=== PATIENT | male | born 1955 | race Caucasian/White ===

== ENCOUNTER 2016-06-17 11:11 | Inpatient (IN) | payer BC, OTHER ==
[2016-06-17] VITALS (11 sets, daily range): BP systolic 103–128; BP diastolic 60–68; PULSE 60–81; RESP 18–22; TEMP 96–99; O2SAT 98–100
[~2016-06-17] VITALS: Ht 182.9 cm; Wt 92.1 kg
[2016-06-17] MEDS ORDERED: ceFAZolin 2 GM PREMIX 50 ML ONE (11:22)
[2016-06-17] MEDS ORDERED: DIPHTH/TETANUS/ACEL PERTUSSIS (BOOSTER) 0.5 ML VIAL/PFS IM ONE (11:22)
[2016-06-17 11:36] LABS: I-STAT POTASSIUM 5.5 MMOL/L (3.5-4.9)
[2016-06-17 11:37] LABS: AUTOMATED NEUTROPHIL # 5.1 TH/MM3 (1.8-7.7); BASOPHIL # 0.1 TH/MM3 (0-0.2); BASOPHIL % 0.9 % (0.0-2.0); EOSINOPHIL # 0.2 TH/MM3 (0-0.4); HEMATOCRIT 50.8 % (39.0-51.0); HEMO FLAGS DIFF FINAL; LYMPH % 36.4 % (9.0-44.0); LYMPHOCYTE # 3.6 TH/MM3 (1.0-4.8); MEAN CELL VOLUME 92.3 FL (80.0-100.0); MEAN CORPUSCULAR HEMOGLOBIN 30.9 PG (27.0-34.0); MEAN CORPUSCULAR HGB CONC 33.4 % (32.0-36.0); MONO % 8.4 % (0.0-8.0); NEUT % 52.3 % (16.0-70.0); PLATELET COUNT 241 TH/MM3 (150-450); RED BLOOD COUNT 5.51 MIL/MM3 (4.50-5.90); RED CELL DISTRIBUTION WIDTH 13.8 % (11.6-17.2); WHITE BLOOD COUNT 9.8 TH/MM3 (4.0-11.0)
[2016-06-17] MEDS ORDERED: IOHEXOL 350 MG/ML 10 ML VIAL (for RAD DIAG) IV ONE (11:43)
[2016-06-17 11:45] LABS: APTT (PATIENT) 25.5 SEC (24.3-30.1); PROTHROMBIN TIME - PATIENT 10.6 SEC (9.8-11.6)
[2016-06-17] MEDS ORDERED: TETANUS/DIPHTHERIA TOXOID ADULT 0.5 ML VIAL IM ONE (11:45)
[2016-06-17] MEDS ORDERED: ROCURONIUM INJ 100 MG/10 ML VIAL IV ONE (11:45)
[2016-06-17] MEDS ORDERED: ceFAZolin 2 GM PREMIX 50 ML IV ONE (11:45)
[2016-06-17] MEDS ORDERED: ETOMIDATE 20 MG/10 ML VIAL IV PUSH ONE (11:45)
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
[2016-06-17] MEDS ORDERED: POTASSIUM CHLOR 20 MEQ PREMIX 100 ML IV PRN ×3 (12:00→13:00)
[2016-06-17] MEDS ORDERED: CHLORHEXIDINE GLUCONATE 2 % 1 PACK (2 CLOTHS) TOP PRN (12:00)
[2016-06-17] MEDS ORDERED: MAGNESIUM OXIDE 400 MG TAB PO PRN (12:00)
[2016-06-17] MEDS ORDERED: POTASSIUM PHOSPHATE MONOBASIC 500 MG TAB PO/TUBE PRN (12:00)
[2016-06-17] MEDS ORDERED: MAGNESIUM SULFATE INJ 4 GM in SODIUM CHLORIDE 0.9% INJ 92 ML IV PRN (12:00)
[2016-06-17] MEDS ORDERED: POTASSIUM PHOSPHATE MONOBASIC 500 MG TAB PO PRN (12:00)
[2016-06-17] MEDS ORDERED: POTASSIUM PHOSPHATE INJ 30 MMOL in SODIUM CHLOR 0.9% 250 ML INJ 250 ML IV PRN (12:00)
[2016-06-17] MEDS ORDERED: MAGNESIUM SULFATE INJ 2 GM in SODIUM CHLORIDE 0.9% INJ 96 ML IV PRN (12:00)
[2016-06-17] MEDS ORDERED: MISCELLANEOUS NURSING INFORMATION XX SCH (12:00)
[2016-06-17] MEDS ORDERED: POTASSIUM CHLOR 40 MEQ PREMIX 100 ML IV PRN ×2 (12:00)
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
[2016-06-17] MEDS ORDERED: SODIUM CHLOR 0.9% 1000 ML INJ 1,000 ML IV ONE (12:15)
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
[2016-06-17] MEDS: SODIUM CHLOR 0.9% 1000 ML INJ 1,000 ML IV SCH (12:30)
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
[2016-06-17] MEDS ORDERED: CALCIUM GLUCONATE INJ 1 GM in SODIUM CHLORIDE 0.9% INJ 100 ML IV PRN (13:00)
[2016-06-17] MEDS ORDERED: SODIUM CHLORIDE 0.9% FLUSH 5 ML FLUSH IVF PRN (13:00)
[2016-06-17] MEDS ORDERED: MAGNESIUM SULFATE INJ 2 GM in SODIUM CHLORIDE 0.9% INJ 100 ML IV PRN (13:00)
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
[2016-06-17] MEDS: PROPOFOL 1000 MG/100 ML INJ 100 ML IV SCH (14:39)
[2016-06-17] MEDS: PANTOPRAZOLE SODIUM 40 MG VIAL IV SCH (14:39)
[2016-06-17] MEDS ORDERED: PANTOPRAZOLE SODIUM 40 MG VIAL IV PUSH SCH (15:00)
--- NOTE | 2016-06-17 15:03 | RADRPT ---
EXAM DATE/TIME: 06/17/2016 14:39 [facility] COMPARISON: CHEST SINGLE AP, June 17, 2016, 11:06. INDICATIONS : Central line placement. MEDICAL HISTORY : None. SURGICAL HISTORY : None. ENCOUNTER: Subsequent ACUITY: 1 day PAIN SCORE: Non-responsive. LOCATION: Bilateral chest FINDINGS: The ET tube, NG tube, and left subclavian line appear well placed. The heart size is normal. There is increased density medial left base. A pneumothorax is not seen. CONCLUSION: The tubes and lines are in good position. There is consolidation or atelectasis at the medial left juan ng base. Fernando Almodovar MD on June 17, 2016 at 15:01 Board Certified Radiologist. This report was verified electronically.
--- NOTE | 2016-06-17 15:04 | PD.PROCEDR ---
Procedure Note Procedure DX: Traumatic Brain Injury OP: 1. Insertion arterial line (92908) 2. Insertion Central Venous Line ([id number]) Procedure: Franck test normal left hand. Left wrist supinated, prepped and draped. Left radial artery cannulated with 20 gauge needle and wire advanced. Canula passed over wire to 3 cm. Good waveform observed. Dressing applied. Left chest prepped and draped. Left subclavian vein cannulated and wire easily advanced. Catheter passed over wire to 17 cm. Lumens aspirated and flushed. Dressing applied. CXR ordered, will review. Mervin Robb MD Jun 17, 2016 15:04
[2016-06-17 15:38] LABS: BLOOD GAS BASE EXCESS -2.7 mmol/L (-2-2); BLOOD GAS CARBOXYHEMOGLOBIN 0.7 % (0-4); BLOOD GAS HCO3 22 mmol/L (22-26); BLOOD GAS O2 HGB SATURATION 98 % (90-100); BLOOD GAS OXYGEN CONTENT 22.3 Vol % (12.0-20.0); BLOOD GAS PCO2 37 mmHg (38-42); BLOOD GAS PO2 347 mmHg (61-120); BLOOD GAS TOTAL HGB 15.6 G/DL (12.0-16.0); CRITICAL VALUE NO; DRAW SITE ART LINE; FIO2 100 %; OXYGEN DEVICE VENTILATOR; STAT YES; TEMP CORR TO 98.6; ULNAR PULSE PRESENT; VENT SETTINGS PRVC/AC
[2016-06-17] MEDS: levETIRAcetam INJ 500 MG in SODIUM CHLORIDE 0.9% INJ 100 ML IV SCH (16:01)
[2016-06-17] MEDS: RESP: ALBUTEROL 2.5 MG/IPRATROPIUM 0.5 MG NEB (SCH) NEB ×2 (16:59→19:39)
[2016-06-17] MEDS ORDERED: GENTAMICIN SULFATE 80 MG/2 ML VIAL ONE (18:36)
[2016-06-17] MEDS ORDERED: VANCOMYCIN HCL 1000 MG VIAL ONE (18:37)
[2016-06-17 19:54] LABS: BLOOD GAS BASE EXCESS -0.9 mmol/L (-2-2); BLOOD GAS CARBOXYHEMOGLOBIN 0.9 % (0-4); BLOOD GAS HCO3 23 mmol/L (22-26); BLOOD GAS O2 HGB SATURATION 97 % (90-100); BLOOD GAS OXYGEN CONTENT 21.4 Vol % (12.0-20.0); BLOOD GAS PCO2 34 mmHg (38-42); BLOOD GAS PO2 159 mmHg (61-120); BLOOD GAS TOTAL HGB 15.5 G/DL (12.0-16.0); CRITICAL VALUE NO; OXYGEN DEVICE VENTILATOR; TEMP CORR TO 98.6
[2016-06-17 19:55] LABS: DRAW SITE ART LINE; FIO2 50 %; STAT NO; ULNAR PULSE PRESENT; VENT SETTINGS PRVC/AC
[2016-06-17] MEDS: DOCUSATE SODIUM 100 MG CAP PO SCH (20:17)
[2016-06-17] MEDS: MAGNESIUM HYDROXIDE SUSP 30 ML CUP PO SCH (20:17)
[2016-06-17] MEDS: CHLORHEXIDINE 0.12% (ORAL KIT) 15 ML CUP MT SCH (20:17)
[2016-06-17] MEDS: SODIUM CHLORIDE 0.9% FLUSH 5 ML FLUSH IV FLUSH SCH (20:18)
[2016-06-17] MEDS: BACITRACIN TOP OINT 15 GM TUBE TOP SCH (21:00)
[2016-06-17] MEDS ORDERED: SODIUM CHLORIDE 0.9% FLUSH 5 ML FLUSH IVF SCH (21:00)
[2016-06-18] VITALS (20 sets, daily range): BP systolic 107–144; BP diastolic 58–90; PULSE 74–95; RESP 18–20; TEMP 97.5–99.3; O2SAT 98–100
[2016-06-18] MEDS: SODIUM CHLOR 0.9% 1000 ML INJ 1,000 ML IV SCH ×3 (01:19→20:34)
[2016-06-18] MEDS: PROPOFOL 1000 MG/100 ML INJ 100 ML IV SCH ×5 (01:19→17:34)
[2016-06-18] MEDS: levETIRAcetam INJ 500 MG in SODIUM CHLORIDE 0.9% INJ 100 ML IV SCH ×2 (01:19→13:26)
[2016-06-18] MEDS ORDERED: LACTCAP8 PO (02:12)
[2016-06-18] MEDS ORDERED: AMLO1TAB35 PO (02:12)
[2016-06-18] MEDS ORDERED: [UNRECOGNIZED DRUG - OTHER] EACH NARE (02:12)
[2016-06-18] MEDS ORDERED: PREV30CA11 PO (02:12)
[2016-06-18] MEDS ORDERED: LEVO.05 PO (02:12)
[2016-06-18] MEDS ORDERED: MULT1TAB84 PO (02:12)
[2016-06-18] MEDS ORDERED: MOBI15TA PO (02:12)
[2016-06-18] MEDS ORDERED: EPINEPHrine HCL (1:10,000) 1 MG/10 ML SYRINGE ONE (02:47)
[2016-06-18] MEDS ORDERED: LIDOCAINE HCL 2% 100 MG/5 ML SYRINGE ONE (02:48)
[2016-06-18] MEDS ORDERED: ATROPINE SULFATE 1 MG/10 ML SYRINGE ONE (02:49)
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
[2016-06-18 04:10] LABS: BLOOD GAS BASE EXCESS -1.6 mmol/L (-2-2); BLOOD GAS CARBOXYHEMOGLOBIN 1.1 % (0-4); BLOOD GAS HCO3 22 mmol/L (22-26); BLOOD GAS METHEMOGLOBIN 1.1 % (0-2); BLOOD GAS O2 HGB SATURATION 95 % (90-100); BLOOD GAS OXYGEN CONTENT 20.8 Vol % (12.0-20.0); BLOOD GAS PCO2 32 mmHg (38-42); BLOOD GAS PO2 87 mmHg (61-120); BLOOD GAS TOTAL HGB 15.5 G/DL (12.0-16.0); TEMP CORR TO 98.6
[2016-06-18 04:11] LABS: CRITICAL VALUE NO; OXYGEN DEVICE VENTILATOR
[2016-06-18 04:12] LABS: DRAW SITE A; FIO2 40 %; STAT NO; VENT SETTINGS SEE COMMENTS
[2016-06-18] MEDS: RESP: ALBUTEROL 2.5 MG/IPRATROPIUM 0.5 MG NEB (SCH) NEB ×4 (04:24→20:57)
[2016-06-18] MEDS: CHLORHEXIDINE 0.12% (ORAL KIT) 15 ML CUP MT SCH ×2 (04:59→20:36)
[2016-06-18] MEDS: CHLORHEXIDINE GLUCONATE 2 % 1 PACK (2 CLOTHS) TOP SCH (04:59)
[2016-06-18 05:09] LABS: BASOPHIL % 0.4 % (0.0-2.0); EOSINOPHIL % 0.2 % (0.0-4.0); HEMATOCRIT 46.4 % (39.0-51.0); HEMO FLAGS DIFF FINAL; LYMPH % 7.8 % (9.0-44.0); LYMPHOCYTE # 0.9 TH/MM3 (1.0-4.8); MEAN CELL VOLUME 91.5 FL (80.0-100.0); MEAN CORPUSCULAR HEMOGLOBIN 30.3 PG (27.0-34.0); MEAN CORPUSCULAR HGB CONC 33.1 % (32.0-36.0); MONO % 7.9 % (0.0-8.0); NEUT % 83.7 % (16.0-70.0); PLATELET COUNT 197 TH/MM3 (150-450); RED BLOOD COUNT 5.06 MIL/MM3 (4.50-5.90); RED CELL DISTRIBUTION WIDTH 14.5 % (11.6-17.2); WHITE BLOOD COUNT 11.9 TH/MM3 (4.0-11.0)
[2016-06-18 05:11] LABS: PROTHROMBIN TIME - PATIENT 10.7 SEC (9.8-11.6)
[2016-06-18 05:28] LABS: BICARBONATE 28.5 MEQ/L (21.0-32.0); MAGNESIUM 2.3 MG/DL (1.5-2.5); POTASSIUM 4.4 MEQ/L (3.5-5.1)
--- NOTE | 2016-06-18 06:32 | RADRPT ---
EXAM DATE/TIME: 06/18/2016 03:19 [facility] COMPARISON: CHEST SINGLE AP, June 17, 2016, 14:39. INDICATIONS : Shortness of breath. MEDICAL HISTORY : None. SURGICAL HISTORY : None. ENCOUNTER: Subsequent ACUITY: 2 days PAIN SCORE: Non-responsive. LOCATION: Bilateral chest FINDINGS: A single view of the chest demonstrates endotracheal tube tip in satisfactory position. Left central line in superior vena cava. NG enters stomach. Subsegmental airspace disease at the lung bases. CONCLUSION: 1. Stable subsegmental airspace disease at the lung bases. Support apparatus in satisfactory position . Luis Enrique Rock MD on June 18, 2016 at 6:29 Board Certified Radiologist. This report was verified electronically.
[2016-06-18] MEDS ORDERED: testosterone (07:29)
[2016-06-18] MEDS ORDERED: CIAL2.5T PO (07:29)
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
[2016-06-18] MEDS ORDERED: 3% SALINE INJ 500 ML IV ONE (08:00)
[2016-06-18] MEDS: LACTULOSE SYRUP 20 GM/30 ML CUP PO SCH (08:37)
[2016-06-18] MEDS: SODIUM CHLORIDE 0.9% FLUSH 5 ML FLUSH IV FLUSH SCH ×2 (08:38→20:35)
[2016-06-18] MEDS: DOCUSATE SODIUM 100 MG CAP PO SCH ×2 (08:38→21:00)
[2016-06-18] MEDS: PANTOPRAZOLE SODIUM 40 MG VIAL IV SCH (08:38)
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
[2016-06-18 12:11] LABS: BLOOD GAS HCO3 23 mmol/L (22-26); BLOOD GAS O2 HGB SATURATION 96 % (90-100); BLOOD GAS OXYGEN CONTENT 20.8 Vol % (12.0-20.0); BLOOD GAS PCO2 37 mmHg (38-42); BLOOD GAS PO2 99 mmHg (61-120); BLOOD GAS TOTAL HGB 15.4 G/DL (12.0-16.0); CRITICAL VALUE NO; FIO2 40 %; OXYGEN DEVICE VENTILATOR; TEMP CORR TO 98.6; VENT SETTINGS PRVC/AC
[2016-06-18 12:12] LABS: DRAW SITE ART LINE; NUMBER OF ARTERIAL PUNCTURES 0; STAT NO; ULNAR PULSE PRESENT
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
[2016-06-18 20:26] LABS: BLOOD GAS BASE EXCESS 0.3 mmol/L (-2-2); BLOOD GAS CARBOXYHEMOGLOBIN 0.8 % (0-4); BLOOD GAS HCO3 24 mmol/L (22-26); BLOOD GAS O2 HGB SATURATION 97 % (90-100); BLOOD GAS OXYGEN CONTENT 20.2 Vol % (12.0-20.0); BLOOD GAS PCO2 37 mmHg (38-42); BLOOD GAS PO2 115 mmHg (61-120); BLOOD GAS TOTAL HGB 14.8 G/DL (12.0-16.0); CRITICAL VALUE NO; OXYGEN DEVICE VENTILATOR; TEMP CORR TO 98.6
[2016-06-18 20:27] LABS: DRAW SITE ART LINE; FIO2 40 %; STAT NO; VENT SETTINGS SEE COMMENTS
[2016-06-18] MEDS: MAGNESIUM HYDROXIDE SUSP 30 ML CUP PO SCH (20:36)
[2016-06-19] VITALS (19 sets, daily range): BP systolic 138–162; BP diastolic 60–74; PULSE 77–98; RESP 20–22; TEMP 97.5–99; O2SAT 96–99
[2016-06-19] MEDS: PROPOFOL 1000 MG/100 ML INJ 100 ML IV SCH ×4 (01:02→20:38)
[2016-06-19] MEDS: levETIRAcetam INJ 500 MG in SODIUM CHLORIDE 0.9% INJ 100 ML IV SCH ×2 (01:02→14:11)
[2016-06-19] MEDS: RESP: ALBUTEROL 2.5 MG/IPRATROPIUM 0.5 MG NEB (SCH) NEB ×4 (03:29→22:17)
[2016-06-19] MEDS: CHLORHEXIDINE GLUCONATE 2 % 1 PACK (2 CLOTHS) TOP SCH (04:00)
[2016-06-19 04:34] LABS: AUTOMATED NEUTROPHIL # 8.9 TH/MM3 (1.8-7.7); BASOPHIL # 0.1 TH/MM3 (0-0.2); BASOPHIL % 0.6 % (0.0-2.0); EOSINOPHIL % 0.4 % (0.0-4.0); HEMO FLAGS DIFF FINAL; LYMPH % 9.8 % (9.0-44.0); LYMPHOCYTE # 1.1 TH/MM3 (1.0-4.8); MEAN CELL VOLUME 92.5 FL (80.0-100.0); MEAN CORPUSCULAR HEMOGLOBIN 31.2 PG (27.0-34.0); MEAN CORPUSCULAR HGB CONC 33.7 % (32.0-36.0); MONO % 8.6 % (0.0-8.0); NEUT % 80.6 % (16.0-70.0); PLATELET COUNT 225 TH/MM3 (150-450); RED BLOOD COUNT 4.43 MIL/MM3 (4.50-5.90); RED CELL DISTRIBUTION WIDTH 14.7 % (11.6-17.2)
[2016-06-19 04:59] LABS: BLOOD GAS BASE EXCESS -0.2 mmol/L (-2-2); BLOOD GAS HCO3 23 mmol/L (22-26); BLOOD GAS METHEMOGLOBIN 0.9 % (0-2); BLOOD GAS O2 HGB SATURATION 96 % (90-100); BLOOD GAS OXYGEN CONTENT 18.6 Vol % (12.0-20.0); BLOOD GAS PCO2 34 mmHg (38-42); BLOOD GAS PO2 99 mmHg (61-120); BLOOD GAS TOTAL HGB 13.7 G/DL (12.0-16.0); CRITICAL VALUE NO; FIO2 45 %; OXYGEN DEVICE VENTILATOR; TEMP CORR TO 98.6; VENT SETTINGS PRVC/22/550/1.0/+5
[2016-06-19 05:00] LABS: DRAW SITE ALINE; STAT NO; ULNAR PULSE PRESENT
[2016-06-19 05:34] LABS: ALKALINE PHOSPHATASE 41 U/L (45-117); ALT (GPT) 25 U/L (12-78); ANION GAP 7 MEQ/L (5-15); AST (GOT) 26 U/L (15-37); BICARBONATE 25.3 MEQ/L (21.0-32.0); BLOOD UREA NITROGEN 13 MG/DL (7-18); CHLORIDE 120 MEQ/L (98-107); GLOMERULAR FILTRATION RATE 62 ML/MIN (>89); POTASSIUM 4.3 MEQ/L (3.5-5.1); SODIUM (NA) 152 MEQ/L (136-145); TOTAL BILIRUBIN ADULT 0.9 MG/DL (0.2-1.0)
--- NOTE | 2016-06-19 07:09 | RADRPT ---
EXAM DATE/TIME: 06/19/2016 03:27 [facility] COMPARISON: CHEST SINGLE AP, June 18, 2016, 3:19. INDICATIONS : Shortness of breath. MEDICAL HISTORY : None. SURGICAL HISTORY : None. ENCOUNTER: Subsequent ACUITY: 3 days PAIN SCORE: Non-responsive. LOCATION: Bilateral chest FINDINGS: Compare June 18. Endotracheal tube and nasogastric tube unchanged. Minimal basilar and perihilar air space disease is stable. No effusion or pneumothorax. CONCLUSION: Mild basilar and perihilar airspace disease is stable. Support apparatus unchanged. Left central line in superior vena cava. Luis Enrique Rock MD on June 19, 2016 at 7:05 Board Certified Radiologist. This report was verified electronically.
[2016-06-19] MEDS: LACTULOSE SYRUP 20 GM/30 ML CUP PO SCH (08:35)
[2016-06-19] MEDS: DOCUSATE SODIUM 100 MG CAP PO SCH ×2 (08:35→20:39)
[2016-06-19] MEDS: PANTOPRAZOLE SODIUM 40 MG VIAL IV SCH (08:35)
[2016-06-19] MEDS: SODIUM CHLORIDE 0.9% FLUSH 5 ML FLUSH IV FLUSH SCH ×2 (08:36→20:39)
[2016-06-19] MEDS: CHLORHEXIDINE 0.12% (ORAL KIT) 15 ML CUP MT SCH ×2 (08:36→20:33)
[2016-06-19] MEDS: BACITRACIN TOP OINT 15 GM TUBE TOP SCH ×3 (08:37→21:00)
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
[2016-06-19] MEDS ORDERED: NON-FORMULARY DRUG (Amlodipine-Atorvastatin 1 TAB) PO SCH (09:45)
[2016-06-19] MEDS: LEVOTHYROXINE SODIUM 50 MCG TAB PO SCH (11:11)
[2016-06-19] MEDS: SODIUM CHLOR 0.9% 1000 ML INJ 1,000 ML IV SCH ×2 (11:12→21:30)
[2016-06-19] MEDS: ATORVASTATIN 10 MG TAB PO SCH (11:12)
[2016-06-19] MEDS: amLODIPine BESYLATE 5 MG TAB PO SCH (11:12)
[2016-06-19] MEDS ORDERED: 3% SALINE INJ 500 ML IV ONE (12:30)
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
[2016-06-19] MEDS: METOPROLOL TARTRATE 25 MG TAB PO SCH ×2 (13:20→20:39)
[2016-06-19] MEDS: MAGNESIUM HYDROXIDE SUSP 30 ML CUP PO SCH (20:39)
[2016-06-19] MEDS: SODIUM CHLORIDE 0.9% FLUSH 5 ML FLUSH IV FLUSH PRN (23:35)
[2016-06-19] MEDS: LABETALOL HCL 100 MG/20 ML VIAL IV PUSH PRN (23:35)
[2016-06-20] VITALS (15 sets, daily range): BP systolic 114–175; BP diastolic 52–71; PULSE 70–114; RESP 18–22; TEMP 98.2–99.9; O2SAT 93–100
[2016-06-20] MEDS: PROPOFOL 1000 MG/100 ML INJ 100 ML IV SCH ×2 (01:13→06:08)
[2016-06-20] MEDS: levETIRAcetam INJ 500 MG in SODIUM CHLORIDE 0.9% INJ 100 ML IV SCH ×2 (01:14→15:47)
[2016-06-20] MEDS: RESP: ALBUTEROL 2.5 MG/IPRATROPIUM 0.5 MG NEB (SCH) NEB ×4 (03:15→21:07)
[2016-06-20] MEDS: LABETALOL HCL 100 MG/20 ML VIAL IV PUSH PRN ×3 (03:15→09:06)
[2016-06-20] MEDS: SODIUM CHLORIDE 0.9% FLUSH 5 ML FLUSH IV FLUSH PRN ×2 (03:29→06:52)
[2016-06-20] MEDS: CHLORHEXIDINE GLUCONATE 2 % 1 PACK (2 CLOTHS) TOP SCH (04:00)
[2016-06-20 04:27] LABS: AUTOMATED NEUTROPHIL # 7.9 TH/MM3 (1.8-7.7); BASOPHIL # 0.1 TH/MM3 (0-0.2); BASOPHIL % 0.8 % (0.0-2.0); EOSINOPHIL # 0.2 TH/MM3 (0-0.4); EOSINOPHIL % 1.9 % (0.0-4.0); HEMATOCRIT 36.4 % (39.0-51.0); HEMO FLAGS DIFF FINAL; LYMPH % 10.1 % (9.0-44.0); MEAN CELL VOLUME 92.1 FL (80.0-100.0); MEAN CORPUSCULAR HEMOGLOBIN 31.4 PG (27.0-34.0); MEAN CORPUSCULAR HGB CONC 34.1 % (32.0-36.0); MONO % 8.3 % (0.0-8.0); NEUT % 78.9 % (16.0-70.0); PLATELET COUNT 180 TH/MM3 (150-450); RED BLOOD COUNT 3.95 MIL/MM3 (4.50-5.90); RED CELL DISTRIBUTION WIDTH 14.6 % (11.6-17.2)
[2016-06-20 05:19] LABS: ALT (GPT) 32 U/L (12-78); ANION GAP 7 MEQ/L (5-15); AST (GOT) 32 U/L (15-37); BLOOD UREA NITROGEN 12 MG/DL (7-18); CHLORIDE 122 MEQ/L (98-107); GLOMERULAR FILTRATION RATE 75 ML/MIN (>89); MAGNESIUM 2.7 MG/DL (1.5-2.5); SODIUM (NA) 154 MEQ/L (136-145)
[2016-06-20 05:22] LABS: ALKALINE PHOSPHATASE 48 U/L (45-117); TOTAL BILIRUBIN ADULT 0.8 MG/DL (0.2-1.0)
[2016-06-20] MEDS: LEVOTHYROXINE SODIUM 50 MCG TAB PO SCH (06:08)
--- NOTE | 2016-06-20 06:09 | RADRPT ---
EXAM DATE/TIME: 06/20/2016 04:04 [facility] COMPARISON: CHEST SINGLE AP, June 19, 2016, 3:27. INDICATIONS : Shortness of breath. MEDICAL HISTORY : None. SURGICAL HISTORY : None. ENCOUNTER: Subsequent ACUITY: 4 - 6 days PAIN SCORE: Non-responsive. LOCATION: Bilateral chest FINDINGS: A single view of the chest demonstrates endotracheal tube and gastric position. NG enters stomach. A central line in superior vena cava. Mild basilar airspace disease. No effusion or pneumothorax. CONCLUSION: 1. Support apparatus unchanged. Mild basilar airspace disease similar to June 19. Luis Enrique Rock MD on June 20, 2016 at 6:06 Board Certified Radiologist. This report was verified electronically.
[2016-06-20] MEDS: SODIUM PHOSPHATE INJ 30 MMOL in SODIUM CHLOR 0.9% 250 ML INJ 240 ML IV PRN (07:46)
[2016-06-20] MEDS: CHLORHEXIDINE 0.12% (ORAL KIT) 15 ML CUP MT SCH (08:25)
[2016-06-20] MEDS: LACTULOSE SYRUP 20 GM/30 ML CUP PO SCH (08:25)
[2016-06-20] MEDS: PANTOPRAZOLE SODIUM 40 MG VIAL IV SCH (08:25)
[2016-06-20] MEDS: DOCUSATE SODIUM 100 MG CAP PO SCH ×2 (08:26→21:00)
[2016-06-20] MEDS: METOPROLOL TARTRATE 25 MG TAB PO SCH (08:26)
[2016-06-20] MEDS: amLODIPine BESYLATE 5 MG TAB PO SCH (08:26)
[2016-06-20] MEDS: ATORVASTATIN 10 MG TAB PO SCH (08:26)
[2016-06-20] MEDS: SODIUM CHLORIDE 0.9% FLUSH 5 ML FLUSH IV FLUSH SCH ×2 (08:26→21:28)
[2016-06-20] MEDS: BACITRACIN TOP OINT 15 GM TUBE TOP SCH ×2 (08:27→21:00)
[2016-06-20] MEDS: SODIUM CHLOR 0.9% 1000 ML INJ 1,000 ML IV SCH ×2 (08:28→21:07)
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
[2016-06-20] MEDS ORDERED: METOPROLOL TARTRATE 5 MG/5 ML VIAL ONE (17:29)
[2016-06-20] MEDS ORDERED: METOPROLOL TARTRATE 5 MG/5 ML VIAL IV PUSH ONE (18:00)
[2016-06-20] MEDS: ARTIFICIAL TEARS OPTH OINT 3.5 APPLIC/3.5 GM TUBO LEFT EYE SCH (21:00)
[2016-06-20] MEDS: MAGNESIUM HYDROXIDE SUSP 30 ML CUP PO SCH (21:00)
[2016-06-20] MEDS: ACETAMINOPHEN 1000 MG/100 ML VIAL IV PRN (22:55)
[2016-06-21] VITALS (20 sets, daily range): BP systolic 124–161; BP diastolic 58–71; PULSE 78–93; RESP 20–24; TEMP 99.2–102.6; O2SAT 94–100
[2016-06-21] MEDS: METOPROLOL TARTRATE 5 MG/5 ML VIAL IV SCH ×4 (00:23→17:59)
[2016-06-21] MEDS ORDERED: SUCCINYLCHOLINE CHLORIDE 200 MG/10 ML VIAL ONE (00:42)
[2016-06-21] MEDS ORDERED: ETOMIDATE 20 MG/10 ML VIAL ONE (00:42)
[2016-06-21] MEDS ORDERED: SUCCINYLCHOLINE CHLORIDE 200 MG/10 ML VIAL IV PUSH ONE (00:45)
[2016-06-21] MEDS ORDERED: ETOMIDATE 20 MG/10 ML VIAL IV PUSH ONE (00:45)
[2016-06-21] MEDS ORDERED: PROPOFOL 1000 MG/100 ML INJ 100 ML ONE (00:56)
[2016-06-21] MEDS: PROPOFOL 1000 MG/100 ML INJ 100 ML IV SCH ×4 (01:14→16:16)
--- NOTE | 2016-06-21 01:31 | RADRPT ---
EXAM DATE/TIME: 06/21/2016 01:11 [facility] COMPARISON: CHEST SINGLE AP, June 20, 2016, 4:04. INDICATIONS : Post intubation. MEDICAL HISTORY : None. SURGICAL HISTORY : None. ENCOUNTER: Subsequent ACUITY: 4 - 6 days PAIN SCORE: Non-responsive. LOCATION: Bilateral chest FINDINGS: Endotracheal tube is present and the tip extends to the inferior margin of the clavicles. Left subcla vian line tip overlies the SVC. There is consolidation of the left lower lobe suspected. Right lung i s clear. Osseous structures are intact. Enteric tube courses beneath the diaphragm. CONCLUSION: Lines and tubes as above. Left lower lobe consolidation. Prosper Pritchett MD on June 21, 2016 at 1:29 Board Certified Radiologist. This report was verified electronically.
[2016-06-21] MEDS: levETIRAcetam INJ 500 MG in SODIUM CHLORIDE 0.9% INJ 100 ML IV SCH ×2 (01:46→13:23)
[2016-06-21] MEDS: RESP: ALBUTEROL 2.5 MG/IPRATROPIUM 0.5 MG NEB (SCH) NEB ×3 (03:42→15:03)
[2016-06-21] MEDS: CHLORHEXIDINE GLUCONATE 2 % 1 PACK (2 CLOTHS) TOP SCH (04:00)
[2016-06-21 04:18] LABS: BLOOD GAS BASE EXCESS -1.1 mmol/L (-2-2); BLOOD GAS HCO3 23 mmol/L (22-26); BLOOD GAS METHEMOGLOBIN 1.1 % (0-2); BLOOD GAS O2 HGB SATURATION 98 % (90-100); BLOOD GAS OXYGEN CONTENT 17.3 Vol % (12.0-20.0); BLOOD GAS PCO2 34 mmHg (38-42); BLOOD GAS PO2 221 mmHg (61-120); BLOOD GAS TOTAL HGB 12.3 G/DL (12.0-16.0); CRITICAL VALUE NO; OXYGEN DEVICE VENTILATOR; TEMP CORR TO 98.6
[2016-06-21 04:19] LABS: VENT SETTINGS SEE COMMENTS
[2016-06-21 04:20] LABS: DRAW SITE LT RADIAL; FIO2 100 %; NUMBER OF ARTERIAL PUNCTURES 1; STAT NO; ULNAR PULSE PRESENT
[2016-06-21 06:12] LABS: AUTOMATED NEUTROPHIL # 7.8 TH/MM3 (1.8-7.7); BASOPHIL # 0.1 TH/MM3 (0-0.2); BASOPHIL % 0.7 % (0.0-2.0); EOSINOPHIL # 0.4 TH/MM3 (0-0.4); EOSINOPHIL % 3.4 % (0.0-4.0); HEMATOCRIT 34.7 % (39.0-51.0); HEMO FLAGS DIFF FINAL; LYMPHOCYTE # 1.1 TH/MM3 (1.0-4.8); MEAN CORPUSCULAR HEMOGLOBIN 31.7 PG (27.0-34.0); MEAN CORPUSCULAR HGB CONC 34.5 % (32.0-36.0); NEUT % 76.9 % (16.0-70.0); PLATELET COUNT 185 TH/MM3 (150-450); RED BLOOD COUNT 3.77 MIL/MM3 (4.50-5.90); RED CELL DISTRIBUTION WIDTH 14.8 % (11.6-17.2); WHITE BLOOD COUNT 10.2 TH/MM3 (4.0-11.0)
[2016-06-21 06:35] LABS: ALT (GPT) 46 U/L (12-78); ANION GAP 8 MEQ/L (5-15); AST (GOT) 46 U/L (15-37); BICARBONATE 25.2 MEQ/L (21.0-32.0); BLOOD UREA NITROGEN 15 MG/DL (7-18); CHLORIDE 118 MEQ/L (98-107); GLOMERULAR FILTRATION RATE 76 ML/MIN (>89); MAGNESIUM 2.5 MG/DL (1.5-2.5); POTASSIUM 3.8 MEQ/L (3.5-5.1); SODIUM (NA) 151 MEQ/L (136-145)
[2016-06-21 06:37] LABS: ALKALINE PHOSPHATASE 47 U/L (45-117); TOTAL BILIRUBIN ADULT 1.6 MG/DL (0.2-1.0)
[2016-06-21] MEDS: LEVOTHYROXINE SODIUM 50 MCG TAB PO SCH (07:40)
[2016-06-21] MEDS ORDERED: BISACODYL 10 MG SUPP RECTAL ONE (08:00)
[2016-06-21] MEDS: CHLORHEXIDINE 0.12% (ORAL KIT) 15 ML CUP MT SCH ×2 (08:00→21:00)
[2016-06-21] MEDS: DOCUSATE SODIUM 100 MG CAP PO SCH ×2 (08:28→20:42)
[2016-06-21] MEDS: ATORVASTATIN 10 MG TAB PO SCH (08:28)
[2016-06-21] MEDS: SODIUM CHLORIDE 0.9% FLUSH 5 ML FLUSH IV FLUSH SCH ×2 (08:28→21:00)
[2016-06-21] MEDS: LACTULOSE SYRUP 20 GM/30 ML CUP PO SCH (08:28)
[2016-06-21] MEDS: PANTOPRAZOLE SODIUM 40 MG VIAL IV SCH (08:28)
[2016-06-21] MEDS: BACITRACIN TOP OINT 15 GM TUBE TOP SCH ×2 (08:29→21:00)
[2016-06-21] MEDS: ARTIFICIAL TEARS OPTH OINT 3.5 APPLIC/3.5 GM TUBO LEFT EYE SCH ×2 (08:29→21:01)
[2016-06-21] MEDS: SODIUM CHLOR 0.9% 1000 ML INJ 1,000 ML IV SCH ×2 (08:33→23:30)
[2016-06-21] MEDS: amLODIPine BESYLATE 5 MG TAB PO SCH (08:34)
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
[2016-06-21] MEDS: LABETALOL HCL 100 MG/20 ML VIAL IV PUSH PRN (19:47)
[2016-06-21] MEDS: ACETAMINOPHEN 1000 MG/100 ML VIAL IV PRN (19:47)
[2016-06-21] MEDS: RESP: ALBUTEROL 2.5 MG/IPRATROPIUM 0.5 MG NEB (PRN) NEB (19:49)
[2016-06-21] MEDS ORDERED: VANCOMYCIN INJ 1,000 MG in SODIUM CHLOR 0.9% 250 ML INJ 250 ML IV ONE (20:30)
[2016-06-21] MEDS ORDERED: Vancomycin Consult Pharmacy 1 EA OTHER SCH (20:30)
[2016-06-21] MEDS: MAGNESIUM HYDROXIDE SUSP 30 ML CUP PO SCH (20:42)
[2016-06-21] MEDS: PIPERACIL-TAZO 4.5 GM PREMIX 100 ML IV SCH (21:33)
[2016-06-21] MEDS ORDERED: VANCOMYCIN INJ 2,000 MG in SODIUM CHLORID 0.9% 500 ML INJ 500 ML IV ONE (23:00)
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
[2016-06-22] VITALS (18 sets, daily range): BP systolic 121–172; BP diastolic 61–85; PULSE 63–108; RESP 20–22; TEMP 99.7–101.5; O2SAT 96–100
[2016-06-22] MEDS: PROPOFOL 1000 MG/100 ML INJ 100 ML IV SCH ×2 (01:31→10:30)
[2016-06-22] MEDS: METOPROLOL TARTRATE 5 MG/5 ML VIAL IV SCH ×2 (01:31→05:17)
[2016-06-22] MEDS: levETIRAcetam INJ 500 MG in SODIUM CHLORIDE 0.9% INJ 100 ML IV SCH ×2 (01:32→13:31)
[2016-06-22] MEDS: CHLORHEXIDINE GLUCONATE 2 % 1 PACK (2 CLOTHS) TOP SCH (04:00)
[2016-06-22] MEDS: PIPERACIL-TAZO 4.5 GM PREMIX 100 ML IV SCH ×4 (05:17→20:44)
[2016-06-22] MEDS: LEVOTHYROXINE SODIUM 50 MCG TAB PO SCH (05:17)
[2016-06-22 05:49] LABS: AUTOMATED NEUTROPHIL # 14.7 TH/MM3 (1.8-7.7); BASOPHIL # 0.1 TH/MM3 (0-0.2); BASOPHIL % 0.5 % (0.0-2.0); EOSINOPHIL # 0.1 TH/MM3 (0-0.4); EOSINOPHIL % 0.3 % (0.0-4.0); HEMATOCRIT 37.2 % (39.0-51.0); HEMO FLAGS DIFF FINAL; LYMPH % 4.9 % (9.0-44.0); LYMPHOCYTE # 0.8 TH/MM3 (1.0-4.8); MEAN CORPUSCULAR HEMOGLOBIN 30.9 PG (27.0-34.0); MEAN CORPUSCULAR HGB CONC 33.2 % (32.0-36.0); MONO % 6.9 % (0.0-8.0); NEUT % 87.4 % (16.0-70.0); PLATELET COUNT 179 TH/MM3 (150-450); RED CELL DISTRIBUTION WIDTH 14.1 % (11.6-17.2); WHITE BLOOD COUNT 16.9 TH/MM3 (4.0-11.0)
[2016-06-22 05:53] LABS: BLOOD GAS BASE EXCESS -0.9 mmol/L (-2-2); BLOOD GAS CARBOXYHEMOGLOBIN 1.3 % (0-4); BLOOD GAS HCO3 23 mmol/L (22-26); BLOOD GAS METHEMOGLOBIN 0.9 % (0-2); BLOOD GAS O2 HGB SATURATION 96 % (90-100); BLOOD GAS OXYGEN CONTENT 16.8 Vol % (12.0-20.0); BLOOD GAS PCO2 35 mmHg (38-42); BLOOD GAS PO2 97 mmHg (61-120); BLOOD GAS TOTAL HGB 12.4 G/DL (12.0-16.0); CRITICAL VALUE NO; OXYGEN DEVICE VENTILATOR; TEMP CORR TO 98.6
[2016-06-22 05:54] LABS: DRAW SITE LT RADIAL; FIO2 45 %; NUMBER OF ARTERIAL PUNCTURES 1; STAT NO; ULNAR PULSE PRESENT; VENT SETTINGS SEE COMMEMNT
--- NOTE | 2016-06-22 05:54 | RADRPT ---
EXAM DATE/TIME: 06/22/2016 03:31 [facility] COMPARISON: CHEST SINGLE AP, June 21, 2016, 1:11. INDICATIONS : Short of breath. MEDICAL HISTORY : None. SURGICAL HISTORY : None. ENCOUNTER: Subsequent ACUITY: 4 - 6 days PAIN SCORE: Non-responsive. LOCATION: Bilateral chest FINDINGS: Endotracheal tube and enteric tube again seen. Left subclavian line again noted. There is no consolid ation or effusion right lung is clear. Small left effusion and left basilar airspace disease suspecte d. This is stable. CONCLUSION: No significant change has occurred. Prosper Pritchett MD on June 22, 2016 at 5:52 Board Certified Radiologist. This report was verified electronically.
[2016-06-22 06:16] LABS: ALKALINE PHOSPHATASE 80 U/L (45-117); ALT (GPT) 110 U/L (12-78); ANION GAP 7 MEQ/L (5-15); AST (GOT) 98 U/L (15-37); BICARBONATE 25.4 MEQ/L (21.0-32.0); BLOOD UREA NITROGEN 18 MG/DL (7-18); CHLORIDE 114 MEQ/L (98-107); GLOMERULAR FILTRATION RATE 68 ML/MIN (>89); MAGNESIUM 2.8 MG/DL (1.5-2.5); POTASSIUM 4.2 MEQ/L (3.5-5.1); SODIUM (NA) 146 MEQ/L (136-145); TOTAL BILIRUBIN ADULT 3.2 MG/DL (0.2-1.0)
[2016-06-22] MEDS: CHLORHEXIDINE 0.12% (ORAL KIT) 15 ML CUP MT SCH ×2 (08:05→20:27)
[2016-06-22] MEDS: PANTOPRAZOLE SODIUM 40 MG VIAL IV SCH (08:59)
[2016-06-22] MEDS: amLODIPine BESYLATE 5 MG TAB PO SCH (09:00)
[2016-06-22] MEDS: ATORVASTATIN 10 MG TAB PO SCH (09:00)
[2016-06-22] MEDS: LACTULOSE SYRUP 20 GM/30 ML CUP PO SCH (09:00)
[2016-06-22] MEDS: DOCUSATE SODIUM 100 MG CAP PO SCH ×2 (09:00→20:36)
[2016-06-22] MEDS: ARTIFICIAL TEARS OPTH OINT 3.5 APPLIC/3.5 GM TUBO LEFT EYE SCH ×2 (09:01→20:36)
[2016-06-22] MEDS: SODIUM CHLORIDE 0.9% FLUSH 5 ML FLUSH IV FLUSH SCH ×2 (09:01→20:35)
[2016-06-22] MEDS: BACITRACIN TOP OINT 15 GM TUBE TOP SCH ×2 (09:01→20:37)
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
[2016-06-22] MEDS ORDERED: METOPROLOL TARTRATE 5 MG/5 ML VIAL IV PRN (10:00)
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
[2016-06-22] MEDS: PROPRANOLOL HCL 20 MG TAB PO SCH ×3 (10:31→22:00)
[2016-06-22] MEDS: oxyCODONE HCL ORAL CONC 20 MG/ML SYRINGE PO SCH ×4 (10:32→20:48)
[2016-06-22] MEDS: VANCOMYCIN INJ 1,500 MG in SODIUM CHLORID 0.9% 500 ML INJ 500 ML IV SCH (11:39)
[2016-06-22] MEDS: SODIUM CHLOR 0.9% 1000 ML INJ 1,000 ML IV SCH (12:00)
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
[2016-06-22] MEDS: MAGNESIUM HYDROXIDE SUSP 30 ML CUP PO SCH (20:36)
[2016-06-22] MEDS: ACETAMINOPHEN 1000 MG/100 ML VIAL IV PRN (21:36)
[2016-06-23] VITALS (19 sets, daily range): BP systolic 123–158; BP diastolic 62–77; PULSE 57–69; RESP 20; TEMP 99.1–100.6; O2SAT 97–100
[2016-06-23] MEDS: VANCOMYCIN INJ 1,500 MG in SODIUM CHLORID 0.9% 500 ML INJ 500 ML IV SCH ×2 (00:40→13:03)
[2016-06-23] MEDS: SODIUM CHLOR 0.9% 1000 ML INJ 1,000 ML IV SCH ×2 (00:41→14:35)
[2016-06-23] MEDS: levETIRAcetam INJ 500 MG in SODIUM CHLORIDE 0.9% INJ 100 ML IV SCH ×2 (02:00→14:37)
[2016-06-23] MEDS: oxyCODONE HCL ORAL CONC 20 MG/ML SYRINGE PO SCH ×6 (02:02→21:35)
[2016-06-23] MEDS: CHLORHEXIDINE GLUCONATE 2 % 1 PACK (2 CLOTHS) TOP SCH ×2 (04:00→23:48)
[2016-06-23] MEDS: PIPERACIL-TAZO 4.5 GM PREMIX 100 ML IV SCH ×4 (04:43→21:40)
[2016-06-23] MEDS: LEVOTHYROXINE SODIUM 50 MCG TAB PO SCH (04:44)
--- NOTE | 2016-06-23 04:44 | RADRPT ---
EXAM DATE/TIME: 06/23/2016 02:58 [facility] COMPARISON: CHEST SINGLE AP, June 22, 2016, 3:31. INDICATIONS : Shortness of breath. MEDICAL HISTORY : Non-responsive SURGICAL HISTORY : Non-responsive ENCOUNTER: Subsequent ACUITY: 1 week PAIN SCORE: Non-responsive. LOCATION: Bilateral chest FINDINGS: Bilateral effusions and lower lobe consolidation noted. Endotracheal tube in satisfactory position th e left subclavian line tip overlies the SVC. Enteric tube courses beneath the diaphragm, distal to pr oximal stomach. CONCLUSION: Basilar consolidation and effusions. Prosper Pritchett MD on June 23, 2016 at 4:42 Board Certified Radiologist. This report was verified electronically.
[2016-06-23 05:12] LABS: AUTOMATED NEUTROPHIL # 8.3 TH/MM3 (1.8-7.7); BASOPHIL # 0.1 TH/MM3 (0-0.2); BASOPHIL % 0.5 % (0.0-2.0); EOSINOPHIL # 0.3 TH/MM3 (0-0.4); EOSINOPHIL % 2.5 % (0.0-4.0); HEMATOCRIT 34.3 % (39.0-51.0); HEMO FLAGS DIFF FINAL; LYMPHOCYTE # 0.7 TH/MM3 (1.0-4.8); MEAN CELL VOLUME 92.8 FL (80.0-100.0); MEAN CORPUSCULAR HEMOGLOBIN 30.9 PG (27.0-34.0); MEAN CORPUSCULAR HGB CONC 33.3 % (32.0-36.0); MONO % 9.5 % (0.0-8.0); NEUT % 80.5 % (16.0-70.0); PLATELET COUNT 168 TH/MM3 (150-450); RED CELL DISTRIBUTION WIDTH 14.1 % (11.6-17.2); WHITE BLOOD COUNT 10.3 TH/MM3 (4.0-11.0)
[2016-06-23 05:34] LABS: ALT (GPT) 121 U/L (12-78); ANION GAP 6 MEQ/L (5-15); AST (GOT) 102 U/L (15-37); BLOOD UREA NITROGEN 26 MG/DL (7-18); CHLORIDE 115 MEQ/L (98-107); GLOMERULAR FILTRATION RATE 74 ML/MIN (>89); MAGNESIUM 2.9 MG/DL (1.5-2.5); SODIUM (NA) 146 MEQ/L (136-145)
[2016-06-23 05:36] LABS: BLOOD GAS BASE EXCESS -2.1 mmol/L (-2-2); BLOOD GAS CARBOXYHEMOGLOBIN 1.4 % (0-4); BLOOD GAS HCO3 21 mmol/L (22-26); BLOOD GAS METHEMOGLOBIN 0.7 % (0-2); BLOOD GAS O2 HGB SATURATION 93 % (90-100); BLOOD GAS OXYGEN CONTENT 15.7 Vol % (12.0-20.0); BLOOD GAS PCO2 32 mmHg (38-42); BLOOD GAS PO2 73 mmHg (61-120); BLOOD GAS TOTAL HGB 11.9 G/DL (12.0-16.0); CRITICAL VALUE NO; OXYGEN DEVICE VENTILATOR; TEMP CORR TO 98.6
[2016-06-23 05:36] LABS: ALKALINE PHOSPHATASE 78 U/L (45-117); TOTAL BILIRUBIN ADULT 3.2 MG/DL (0.2-1.0)
[2016-06-23 05:37] LABS: DRAW SITE RT RADIAL; FIO2 40 %; NUMBER OF ARTERIAL PUNCTURES 1; STAT NO; ULNAR PULSE PRESENT; VENT SETTINGS PRVC/AC
[2016-06-23] MEDS: PROPRANOLOL HCL 20 MG TAB PO SCH (05:52)
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
[2016-06-23] MEDS ORDERED: NITROGLYCERIN 2% OINT 1 GM PACKET TOPICAL PRN (08:45)
[2016-06-23] MEDS: CHLORHEXIDINE 0.12% (ORAL KIT) 15 ML CUP MT SCH ×2 (09:16→20:00)
[2016-06-23] MEDS: SODIUM CHLORIDE 0.9% FLUSH 5 ML FLUSH IV FLUSH SCH ×2 (09:17→21:00)
[2016-06-23] MEDS: PANTOPRAZOLE SODIUM 40 MG VIAL IV SCH (09:29)
[2016-06-23] MEDS: LACTULOSE SYRUP 20 GM/30 ML CUP PO SCH (09:29)
[2016-06-23] MEDS: DOCUSATE SODIUM 100 MG CAP PO SCH ×2 (09:30→21:38)
[2016-06-23] MEDS: ARTIFICIAL TEARS OPTH OINT 3.5 APPLIC/3.5 GM TUBO LEFT EYE SCH ×2 (09:31→21:38)
[2016-06-23] MEDS: BACITRACIN TOP OINT 15 GM TUBE TOP SCH ×2 (09:32→21:38)
[2016-06-23] MEDS ORDERED: DIATRIZOATE MEGLUM/DIATRIZOATE SOD 9 ML CUP PO ONE (10:45)
[2016-06-23] MEDS: SODIUM PHOSPHATE INJ 30 MMOL in SODIUM CHLOR 0.9% 250 ML INJ 240 ML IV PRN (11:10)
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
[2016-06-23] MEDS ORDERED: PHARMACY ORDERED LAB XX ONE (11:45)
[2016-06-23] MEDS: ARTIFICIAL TEARS OPTH SOLN 15 ML BTL EACH EYE SCH ×2 (14:00→21:39)
[2016-06-23] MEDS: LABETALOL HCL 100 MG/20 ML VIAL IV PUSH PRN (15:25)
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
[2016-06-23 20:18] LABS: TOTAL BILIRUBIN ADULT 2.1 MG/DL (0.2-1.0)
[2016-06-23] MEDS ORDERED: IOHEXOL 350 MG/ML 10 ML VIAL (for RAD DIAG) IV ONE (20:28)
--- NOTE | 2016-06-23 20:51 | RADRPT ---
EXAM DATE/TIME: 06/23/2016 20:17 [facility] COMPARISON: CT ABDOMEN & PELVIS W CONTRAST, June 17, 2016, 11:40. INDICATIONS : Possible ileus. IV CONTRAST: 100 cc Omnipaque 350 (iohexol) IV ORAL CONTRAST: Prescribed oral contrast ingested. RADIATION DOSE: 15.68 CTDIvol (mGy) MEDICAL HISTORY : None SURGICAL HISTORY : None. ENCOUNTER: Initial ACUITY: 1 day PAIN SCALE: Non-responsive LOCATION: abdomen TECHNIQUE: Volumetric scanning of the abdomen and pelvis was performed. Using automated exposure control and adjustment of the mA and/or kV according to patient size, radiation dose was kept as low as reasonably achievable to obtain optimal diagnostic quality images. FINDINGS: CT Abdomen: The spleen, kidneys, adrenals are unremarkable. There is no evidence for any appreciable pathological adenopathy, free fluid, or bowel obstruction. Bibasilar airspace consolidation is prese nt and worse since the prior examination. Tiny bilateral pleural effusions are seen. The pancreas is fatty-replaced with abdominal and pelvic lipomatosis as well. The danisha mesentery appears improved pr obably improvement in mesenteric contusion. There is a tiny cyst in the liver and no change. CT pelvis: There is no evidence for mass, abscess formation, or any significant adenopathy within the pelvis. There are fractures of L1 and L2 transverse process on the right. There is a tiny amount of fluid in the pelvis. CONCLUSION: 1. Fractures of L1 and L2 transverse process on the right. 2. Improvement in danisha mesentery probably improvement in mesenteric contusion since the prior study. 3. Worsening bibasilar consolidation since the prior exam. Loreto Hull MD on June 23, 2016 at 20:45 Board Certified Radiologist. This report was verified electronically.
[2016-06-23] MEDS: RESP: ALBUTEROL 2.5 MG/IPRATROPIUM 0.5 MG NEB (PRN) NEB (21:15)
[2016-06-23] MEDS ORDERED: GADODIAMIDE PF 287 MG/ML 20 ML VIAL (for RAD MRI) IV ONE (21:16)
[2016-06-23] MEDS: MAGNESIUM HYDROXIDE SUSP 30 ML CUP PO SCH (21:38)
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
[2016-06-24] VITALS (17 sets, daily range): BP systolic 136–173; BP diastolic 70–82; PULSE 55–106; RESP 20–28; TEMP 99–100.6; O2SAT 97–100
[2016-06-24] MEDS ORDERED: VANCOMYCIN INJ 1,750 MG in SODIUM CHLORID 0.9% 500 ML INJ 500 ML IV SCH ×2
[2016-06-24] MEDS: SODIUM CHLOR 0.9% 1000 ML INJ 1,000 ML IV SCH (01:30)
[2016-06-24] MEDS: oxyCODONE HCL ORAL CONC 20 MG/ML SYRINGE PO SCH ×3 (02:00→05:17)
[2016-06-24] MEDS: LABETALOL HCL 100 MG/20 ML VIAL IV PUSH PRN ×4 (02:19→20:15)
[2016-06-24] MEDS: ACETAMINOPHEN 1000 MG/100 ML VIAL IV PRN ×2 (02:49→15:43)
[2016-06-24] MEDS: levETIRAcetam INJ 500 MG in SODIUM CHLORIDE 0.9% INJ 100 ML IV SCH (02:49)
--- NOTE | 2016-06-24 03:22 | RADRPT ---
EXAM DATE/TIME: 06/24/2016 01:47 [facility] COMPARISON: CHEST SINGLE AP, June 23, 2016, 2:58. INDICATIONS : Short of breath. MEDICAL HISTORY : Hypertension. SURGICAL HISTORY : Cholecystectomy. ENCOUNTER: Subsequent ACUITY: 1 week PAIN SCORE: Non-responsive. LOCATION: Bilateral chest FINDINGS: There is consolidation in the left lower lobe and shallow lung volumes. Endotracheal tube and left zuniga bclavian line are present. NG tube courses beneath the diaphragm. CONCLUSION: No significant change has occurred. Prosper Pritchett MD on June 24, 2016 at 3:20 Board Certified Radiologist. This report was verified electronically.
[2016-06-24] MEDS: PIPERACIL-TAZO 4.5 GM PREMIX 100 ML IV SCH ×4 (03:48→22:27)
[2016-06-24 05:40] LABS: BLOOD GAS CARBOXYHEMOGLOBIN 1.1 % (0-4); BLOOD GAS HCO3 20 mmol/L (22-26); BLOOD GAS METHEMOGLOBIN 0.7 % (0-2); BLOOD GAS O2 HGB SATURATION 96 % (90-100); BLOOD GAS PCO2 31 mmHg (38-42); BLOOD GAS PO2 95 mmHg (61-120); BLOOD GAS TOTAL HGB 11.8 G/DL (12.0-16.0); CRITICAL VALUE NO; OXYGEN DEVICE VENTILATOR; TEMP CORR TO 98.6
[2016-06-24 05:41] LABS: DRAW SITE RT RADIAL; FIO2 40 %; NUMBER OF ARTERIAL PUNCTURES 1; STAT NO; ULNAR PULSE PRESENT; VENT SETTINGS PRVC/AC
[2016-06-24] MEDS: ARTIFICIAL TEARS OPTH SOLN 15 ML BTL EACH EYE SCH ×3 (06:00→22:28)
[2016-06-24 06:03] LABS: AUTOMATED NEUTROPHIL # 8.3 TH/MM3 (1.8-7.7); BASOPHIL # 0.1 TH/MM3 (0-0.2); BASOPHIL % 0.6 % (0.0-2.0); EOSINOPHIL # 0.2 TH/MM3 (0-0.4); EOSINOPHIL % 1.7 % (0.0-4.0); HEMATOCRIT 33.7 % (39.0-51.0); HEMO FLAGS DIFF FINAL; LYMPH % 6.6 % (9.0-44.0); LYMPHOCYTE # 0.7 TH/MM3 (1.0-4.8); MEAN CELL VOLUME 92.4 FL (80.0-100.0); MEAN CORPUSCULAR HEMOGLOBIN 30.5 PG (27.0-34.0); MONO % 9.1 % (0.0-8.0); PLATELET COUNT 193 TH/MM3 (150-450); RED BLOOD COUNT 3.65 MIL/MM3 (4.50-5.90); RED CELL DISTRIBUTION WIDTH 14.2 % (11.6-17.2); WHITE BLOOD COUNT 10.2 TH/MM3 (4.0-11.0)
[2016-06-24 06:07] LABS: ALT (GPT) 174 U/L (12-78); ANION GAP 10 MEQ/L (5-15); AST (GOT) 146 U/L (15-37); BICARBONATE 21.6 MEQ/L (21.0-32.0); BLOOD UREA NITROGEN 23 MG/DL (7-18); CHLORIDE 111 MEQ/L (98-107); GLOMERULAR FILTRATION RATE 75 ML/MIN (>89); MAGNESIUM 2.9 MG/DL (1.5-2.5); POTASSIUM 4.2 MEQ/L (3.5-5.1); SODIUM (NA) 143 MEQ/L (136-145)
[2016-06-24 06:09] LABS: ALKALINE PHOSPHATASE 108 U/L (45-117); TOTAL BILIRUBIN ADULT 2.1 MG/DL (0.2-1.0)
[2016-06-24] MEDS: LEVOTHYROXINE SODIUM 50 MCG TAB PO SCH (06:16)
[2016-06-24] MEDS: SODIUM PHOSPHATE INJ 30 MMOL in SODIUM CHLOR 0.9% 250 ML INJ 240 ML IV PRN (07:04)
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
[2016-06-24] MEDS: DOCUSATE SODIUM 100 MG CAP PO SCH ×2 (08:50→20:15)
[2016-06-24] MEDS: SODIUM CHLORIDE 0.9% FLUSH 5 ML FLUSH IV FLUSH SCH ×2 (08:50→20:24)
[2016-06-24] MEDS: LEVOFLOXACIN 750 MG PREMIX INJ 150 ML IV SCH (08:50)
[2016-06-24] MEDS: hydrALAZINE HCL 20 MG/ML VIAL IV PUSH PRN ×4 (08:50→23:12)
[2016-06-24] MEDS: CHLORHEXIDINE 0.12% (ORAL KIT) 15 ML CUP MT SCH ×2 (08:50→20:16)
[2016-06-24] MEDS: PANTOPRAZOLE SODIUM 40 MG VIAL IV SCH (08:51)
[2016-06-24] MEDS: amLODIPine BESYLATE 5 MG TAB PO SCH (08:51)
[2016-06-24] MEDS: ARTIFICIAL TEARS OPTH OINT 3.5 APPLIC/3.5 GM TUBO LEFT EYE SCH ×2 (08:52→20:24)
[2016-06-24] MEDS: BACITRACIN TOP OINT 15 GM TUBE TOP SCH ×2 (08:52→20:24)
[2016-06-24] MEDS ORDERED: POTASSIUM PHOSPHATE INJ 15 MMOL in SODIUM CHLORIDE 0.9% INJ 150 ML IV ONE (09:00)
[2016-06-24] MEDS ORDERED: NITROGLYCERIN 2% OINT 1 GM PACKET TOPICAL PRN (09:00)
[2016-06-24] MEDS: LACTULOSE SYRUP 20 GM/30 ML CUP PO SCH (09:01)
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
[2016-06-24] MEDS ORDERED: BUMETANIDE INJ 1 MG/4 ML VIAL IV PUSH ONE (10:20)
[2016-06-24] MEDS: ENOXAPARIN SODIUM 40 MG/0.4 ML SYRINGE SQ SCH (10:29)
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
[2016-06-24] MEDS: METOCLOPRAMIDE HCL 10 MG/2 ML VIAL IV PUSH SCH ×2 (13:22→22:27)
[2016-06-24] MEDS ORDERED: ROCURONIUM INJ 100 MG/10 ML VIAL IV ONE (13:30)
[2016-06-24] MEDS ORDERED: MIDAZOLAM HCL 5 MG/5 ML VIAL IV PUSH ONE (13:30)
--- NOTE | 2016-06-24 14:09 | PD.PROCEDR ---
Procedure Note Procedure DATE: 06/19/2016 Fiberoptic bronchoscopy: INDICATION: Acute hypoxemia CONSENT Informed consent for procedure was not obtained from family as this was considered an emergent event. DESCRIPTION OF THE PROCEDURE The patient was placed at 30. Ventilator was using PRVC ventilation with FiO2 100%. Patient was anesthetized using 10 mg Versed IV 1 and fentanyl at 100 IV 1. Paralytic provider was rocuronium and 50 mg IV 1. I entered the 8.0 ET tube with fiberoptic bronchoscope. The ETT tube was coated with thick white secretions. The bronchoscope was advanced to the sajan which was sharp. There is erythematous mucosa with signs of suction trauma at the junction of the sajan trachea right-sided. This is irrigated and no further bleeding was noted. It was then advanced to the left mainstem and its subsegments segments. Left upper lingula and lower lobe were visualized. The mucosa was normal. The left upper lobe was suctioned with copious amounts of sterile saline with thick white secretions. There is also thick white secretions in the second and third sub segments which were all suctioned to clear with sterile saline. There were no other findings including evidence of mass, anatomic distortions or hemorrhage. The bronchoscope was subsequently withdrawn and advanced into the right mainstem. Each segment was evaluated and were well visualized. The right upper lobe anatomy was within normal limits. No specific masses or other lesions were identified throughout the tracheobronchial tree on the right. The bronchoscope was then advanced to the bronchus intermedius to the right middle and right lower lobe. No lesions were identified. The mucosa was quite erythematous on the right side. No further bleeding was noted.. Scope was withdrawn and procedure was halted. Saturations remain between 98 and 100% throughout the procedure. ESTIMATED BLOOD LOSS: Minimal COMPLICATIONS: No apparent complications. Rui Hoffmann MD Jun 24, 2016 14:09
--- NOTE | 2016-06-24 16:25 | RADRPT ---
EXAM DATE/TIME: 06/24/2016 14:03 [facility] COMPARISON: CHEST SINGLE AP, June 24, 2016, 1:47. INDICATIONS : Post bronchoscopy MEDICAL HISTORY : Hypertension. SURGICAL HISTORY : Cholecystectomy. ENCOUNTER: Subsequent ACUITY: 1 week PAIN SCORE: Non-responsive. LOCATION: chest FINDINGS: No heart is mildly enlarged. There bilateral effusions. There is diffuse interstitial prominence sugg esting congestive failure. There are atelectatic changes within the left lower lobe. The line which e nters via the left subclavian vein the catheter tip overlies the SVC. The endotracheal tubes in good position. The bony structures are grossly intact. CONCLUSION: 1. Cardiomegaly with small effusions and interstitial prominence suggesting congestive air. 2. Left lower lobe atelectasis. 3. ET tube central line and NG tube in good position. Corby Lima MD on June 24, 2016 at 16:22 Board Certified Radiologist. This report was verified electronically.
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
[2016-06-24] MEDS: MAGNESIUM HYDROXIDE SUSP 30 ML CUP PO SCH (20:15)
[2016-06-25] VITALS (19 sets, daily range): BP systolic 150–157; BP diastolic 67–73; PULSE 60–112; RESP 12–23; TEMP 98.6–100; O2SAT 96–98
[2016-06-25] MEDS: LABETALOL HCL 100 MG/20 ML VIAL IV PUSH PRN ×2 (00:23→04:08)
[2016-06-25] MEDS: hydrALAZINE HCL 20 MG/ML VIAL IV PUSH PRN (02:38)
[2016-06-25] MEDS: CHLORHEXIDINE GLUCONATE 2 % 1 PACK (2 CLOTHS) TOP SCH ×2 (04:00→20:24)
[2016-06-25] MEDS: PIPERACIL-TAZO 4.5 GM PREMIX 100 ML IV SCH ×4 (04:04→21:13)
[2016-06-25] MEDS: ARTIFICIAL TEARS OPTH SOLN 15 ML BTL EACH EYE SCH ×3 (06:00→21:15)
[2016-06-25] MEDS: LEVOTHYROXINE SODIUM 50 MCG TAB PO SCH (06:03)
[2016-06-25] MEDS: METOCLOPRAMIDE HCL 10 MG/2 ML VIAL IV PUSH SCH ×3 (06:03→21:13)
[2016-06-25 06:24] LABS: AUTOMATED NEUTROPHIL # 10.2 TH/MM3 (1.8-7.7); BASOPHIL % 0.3 % (0.0-2.0); EOSINOPHIL # 0.2 TH/MM3 (0-0.4); EOSINOPHIL % 1.7 % (0.0-4.0); LYMPH % 7.5 % (9.0-44.0); MEAN CELL VOLUME 91.2 FL (80.0-100.0); MEAN CORPUSCULAR HEMOGLOBIN 30.3 PG (27.0-34.0); MEAN CORPUSCULAR HGB CONC 33.3 % (32.0-36.0); MONO % 10.1 % (0.0-8.0); NEUT % 80.4 % (16.0-70.0); PLATELET COUNT 281 TH/MM3 (150-450); RED BLOOD COUNT 3.84 MIL/MM3 (4.50-5.90); RED CELL DISTRIBUTION WIDTH 14.1 % (11.6-17.2); WHITE BLOOD COUNT 12.7 TH/MM3 (4.0-11.0)
--- NOTE | 2016-06-25 06:33 | RADRPT ---
EXAM DATE/TIME: 06/25/2016 05:12 [facility] COMPARISON: CHEST SINGLE AP, June 24, 2016, 14:03. INDICATIONS : Shortness of breath. MEDICAL HISTORY : Hypertension. SURGICAL HISTORY : None. ENCOUNTER: Subsequent ACUITY: 1 week PAIN SCORE: Non-responsive. LOCATION: Bilateral chest FINDINGS: A single portable frontal view the chest shows an endotracheal tube with the tip 2 cm proximal to the sajan. Left subclavian central line noted with the tip at the cavoatrial junction. Nasogastric tube coiled within the fundus of the stomach. No pneumothoraces. Basilar consolidation on the left is sta ble. The effusions have improved. Interstitial prominence has improved. CONCLUSION: Stable consolidation with a left lower lobe. Josias Pandya Jr., MD on June 25, 2016 at 6:30 Board Certified Radiologist. This report was verified electronically.
[2016-06-25 06:36] LABS: HEMO FLAGS AUTO DIFF
[2016-06-25 06:54] LABS: ALKALINE PHOSPHATASE 109 U/L (45-117); ALT (GPT) 188 U/L (12-78); ANION GAP 7 MEQ/L (5-15); AST (GOT) 109 U/L (15-37); BICARBONATE 24.7 MEQ/L (21.0-32.0); BLOOD UREA NITROGEN 26 MG/DL (7-18); CHLORIDE 108 MEQ/L (98-107); GLOMERULAR FILTRATION RATE 62 ML/MIN (>89); MAGNESIUM 2.7 MG/DL (1.5-2.5); POTASSIUM 3.9 MEQ/L (3.5-5.1); SODIUM (NA) 140 MEQ/L (136-145)
[2016-06-25 06:56] LABS: CREATINE KINASE 77 U/L (39-308)
[2016-06-25] MEDS: LEVOFLOXACIN 750 MG PREMIX INJ 150 ML IV SCH (08:24)
[2016-06-25] MEDS: PANTOPRAZOLE SODIUM 40 MG VIAL IV SCH (08:24)
[2016-06-25] MEDS: ARTIFICIAL TEARS OPTH OINT 3.5 APPLIC/3.5 GM TUBO LEFT EYE SCH ×2 (08:24→21:00)
[2016-06-25] MEDS: amLODIPine BESYLATE 5 MG TAB PO SCH ×2 (08:24→21:14)
[2016-06-25] MEDS: DOCUSATE SODIUM 100 MG CAP PO SCH ×2 (08:24→21:15)
[2016-06-25] MEDS: LACTULOSE SYRUP 20 GM/30 ML CUP PO SCH (08:25)
[2016-06-25] MEDS: BACITRACIN TOP OINT 15 GM TUBE TOP SCH ×2 (08:25→21:00)
[2016-06-25] MEDS: CHLORHEXIDINE 0.12% (ORAL KIT) 15 ML CUP MT SCH ×2 (08:25→20:00)
[2016-06-25] MEDS: SODIUM CHLORIDE 0.9% FLUSH 5 ML FLUSH IV FLUSH SCH ×2 (08:25→21:00)
[2016-06-25 08:26] LABS: BANDS 1 % (0-6); BASOPHILS 1 % (0-2); EOSINOPHILS 3 % (0-4); NEUTROPHIL # MANUAL DIFF 10.5 TH/MM3 (1.8-7.7); POLYS (SEG NEUTROPHILS) 82 % (16-70); WBC DIFF SAMPLE 100
[2016-06-25 08:28] LABS: PLATELET ESTIMATE SMEAR NORMAL (NORMAL); PLATELET MORPHOLOGY NORMAL (NORMAL); SCAN/DIFF FINAL DIFF MANUAL
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
[2016-06-25] MEDS ORDERED: PILL SPLITTER OTHER PRN (10:00)
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
[2016-06-25] MEDS: METOPROLOL TARTRATE 25 MG TAB PO SCH ×3 (10:52→21:14)
[2016-06-25] MEDS: ENOXAPARIN SODIUM 40 MG/0.4 ML SYRINGE SQ SCH (10:54)
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
[2016-06-25] MEDS ORDERED: PHARMACY ORDERED LAB XX ONE (11:45)
[2016-06-25] MEDS ORDERED: METOPROLOL TARTRATE 5 MG/5 ML VIAL IV SCH (12:00)
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
[2016-06-25] MEDS: DEXMEDETOMIDINE INJ 50 ML IV SCH ×2 (13:02→15:49)
[2016-06-25] MEDS: SODIUM PHOSPHATE INJ 30 MMOL in SODIUM CHLOR 0.9% 250 ML INJ 240 ML IV PRN (15:16)
[2016-06-25] MEDS: MAGNESIUM HYDROXIDE SUSP 30 ML CUP PO SCH (21:13)
[2016-06-25] MEDS: ACETAMINOPHEN 325 MG TAB PO PRN (21:14)
[2016-06-26] VITALS (21 sets, daily range): BP systolic 112–158; BP diastolic 58–83; PULSE 52–99; RESP 14–30; TEMP 98.3–100.8; O2SAT 94–99
[2016-06-26 04:40] LABS: AUTOMATED NEUTROPHIL # 8.9 TH/MM3 (1.8-7.7); BASOPHIL # 0.1 TH/MM3 (0-0.2); BASOPHIL % 0.6 % (0.0-2.0); EOSINOPHIL # 0.3 TH/MM3 (0-0.4); EOSINOPHIL % 2.4 % (0.0-4.0); HEMATOCRIT 31.9 % (39.0-51.0); MEAN CELL VOLUME 90.8 FL (80.0-100.0); MEAN CORPUSCULAR HEMOGLOBIN 30.8 PG (27.0-34.0); MEAN CORPUSCULAR HGB CONC 33.9 % (32.0-36.0); MONO % 8.6 % (0.0-8.0); NEUT % 79.4 % (16.0-70.0); PLATELET COUNT 260 TH/MM3 (150-450); RED BLOOD COUNT 3.52 MIL/MM3 (4.50-5.90); RED CELL DISTRIBUTION WIDTH 14.1 % (11.6-17.2); WHITE BLOOD COUNT 11.2 TH/MM3 (4.0-11.0)
[2016-06-26 04:41] LABS: HEMO FLAGS AUTO DIFF
[2016-06-26] MEDS: METOPROLOL TARTRATE 25 MG TAB PO SCH ×2 (05:03→21:16)
[2016-06-26 05:07] LABS: BICARBONATE 23.1 MEQ/L (21.0-32.0); MAGNESIUM 2.9 MG/DL (1.5-2.5); POTASSIUM 4.1 MEQ/L (3.5-5.1)
[2016-06-26 05:35] LABS: SCAN/DIFF AUTO DIFF CONFIRMED
--- NOTE | 2016-06-26 05:39 | RADRPT ---
EXAM DATE/TIME: 06/26/2016 04:20 [facility] COMPARISON: CHEST SINGLE AP, June 25, 2016, 5:12. INDICATIONS : Shortness of breath, possible pulmonary disease. MEDICAL HISTORY : Hypertension. SURGICAL HISTORY : None. ENCOUNTER: Subsequent ACUITY: 1 week PAIN SCORE: Non-responsive. LOCATION: Bilateral chest FINDINGS: A single portable frontal view of the chest shows improvement in the left lower lobe consolidation. R ight lung remains clear. Tip of the endotracheal tube 2 cm cephalad to the sajan. Nasogastric tube c oiled in the body of the stomach. CONCLUSION: Improving left lower lobe infiltrate. Josias Pandya Jr., MD on June 26, 2016 at 5:37 Board Certified Radiologist. This report was verified electronically.
[2016-06-26] MEDS: ARTIFICIAL TEARS OPTH SOLN 15 ML BTL EACH EYE SCH ×3 (06:00→20:28)
[2016-06-26] MEDS: PIPERACIL-TAZO 4.5 GM PREMIX 100 ML IV SCH ×2 (06:15→10:38)
[2016-06-26] MEDS: METOCLOPRAMIDE HCL 10 MG/2 ML VIAL IV PUSH SCH ×3 (06:16→20:28)
[2016-06-26] MEDS: LEVOTHYROXINE SODIUM 50 MCG TAB PO SCH (06:16)
[2016-06-26] MEDS: PANTOPRAZOLE SODIUM 40 MG VIAL IV SCH (08:16)
[2016-06-26] MEDS: DOCUSATE SODIUM 100 MG CAP PO SCH ×2 (08:16→20:28)
[2016-06-26] MEDS: LACTULOSE SYRUP 20 GM/30 ML CUP PO SCH ×3 (08:16→20:27)
[2016-06-26] MEDS: amLODIPine BESYLATE 5 MG TAB PO SCH ×2 (08:16→21:16)
[2016-06-26] MEDS: CHLORHEXIDINE 0.12% (ORAL KIT) 15 ML CUP MT SCH ×2 (08:17→20:00)
[2016-06-26] MEDS: LEVOFLOXACIN 750 MG PREMIX INJ 150 ML IV SCH (08:17)
[2016-06-26] MEDS: BACITRACIN TOP OINT 15 GM TUBE TOP SCH ×2 (08:17→20:28)
[2016-06-26] MEDS: ARTIFICIAL TEARS OPTH OINT 3.5 APPLIC/3.5 GM TUBO LEFT EYE SCH (08:17)
[2016-06-26] MEDS: SODIUM CHLORIDE 0.9% FLUSH 5 ML FLUSH IV FLUSH SCH ×2 (08:18→20:27)
[2016-06-26] MEDS: DEXMEDETOMIDINE INJ 50 ML IV SCH ×2 (08:43→16:19)
[2016-06-26] MEDS: FAMOTIDINE 20 MG TAB PO SCH ×2 (09:00→21:16)
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
[2016-06-26] MEDS: RESP: ALBUTEROL 2.5 MG/IPRATROPIUM 0.5 MG NEB (SCH) NEB ×3 (10:19→19:46)
[2016-06-26] MEDS: ENOXAPARIN SODIUM 40 MG/0.4 ML SYRINGE SQ SCH (10:38)
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
[2016-06-26] MEDS: POTASSIUM PHOSPHATE/SODIUM PHOSPHATE 250 MG TAB PO SCH ×2 (13:19→21:17)
[2016-06-26] MEDS: ACETAMINOPHEN 325 MG TAB PO PRN (13:19)
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
[2016-06-26] MEDS: hydrALAZINE HCL 20 MG/ML VIAL IV PUSH PRN (14:46)
[2016-06-26] MEDS: MORPHINE SULFATE 8 MG/ML INJ IV PUSH PRN (14:46)
[2016-06-26] MEDS: RESP: TOBRAMYCIN SULFATE 300 MG/5 ML NEB NEB SCH (19:46)
[2016-06-26] MEDS: MAGNESIUM HYDROXIDE SUSP 30 ML CUP PO SCH (20:28)
[2016-06-26] MEDS: CHLORHEXIDINE GLUCONATE 2 % 1 PACK (2 CLOTHS) TOP SCH (21:17)
[2016-06-27] VITALS (19 sets, daily range): BP systolic 137–182; BP diastolic 61–92; PULSE 69–130; RESP 12–22; TEMP 99.2–101.3; O2SAT 95–98
[2016-06-27] MEDS: RESP: ALBUTEROL 2.5 MG/IPRATROPIUM 0.5 MG NEB (SCH) NEB ×4 (03:55→19:33)
[2016-06-27 05:52] LABS: AUTOMATED NEUTROPHIL # 8.4 TH/MM3 (1.8-7.7); BASOPHIL # 0.1 TH/MM3 (0-0.2); BASOPHIL % 0.7 % (0.0-2.0); EOSINOPHIL # 0.5 TH/MM3 (0-0.4); EOSINOPHIL % 4.4 % (0.0-4.0); LYMPH % 13.7 % (9.0-44.0); LYMPHOCYTE # 1.6 TH/MM3 (1.0-4.8); MEAN CELL VOLUME 91.7 FL (80.0-100.0); MEAN CORPUSCULAR HEMOGLOBIN 30.8 PG (27.0-34.0); MEAN CORPUSCULAR HGB CONC 33.6 % (32.0-36.0); MONO % 7.4 % (0.0-8.0); NEUT % 73.8 % (16.0-70.0); PLATELET COUNT 359 TH/MM3 (150-450); RED BLOOD COUNT 3.71 MIL/MM3 (4.50-5.90); RED CELL DISTRIBUTION WIDTH 14.4 % (11.6-17.2); WHITE BLOOD COUNT 11.3 TH/MM3 (4.0-11.0)
[2016-06-27 06:00] LABS: HEMO FLAGS AUTO DIFF
[2016-06-27 06:01] LABS: BICARBONATE 23.8 MEQ/L (21.0-32.0); MAGNESIUM 2.8 MG/DL (1.5-2.5); POTASSIUM 4.3 MEQ/L (3.5-5.1)
[2016-06-27] MEDS: ARTIFICIAL TEARS OPTH SOLN 15 ML BTL EACH EYE SCH ×3 (06:26→21:45)
[2016-06-27] MEDS: METOCLOPRAMIDE HCL 10 MG/2 ML VIAL IV PUSH SCH ×3 (06:27→21:46)
[2016-06-27] MEDS: POTASSIUM PHOSPHATE/SODIUM PHOSPHATE 250 MG TAB PO SCH (06:27)
[2016-06-27] MEDS: LEVOTHYROXINE SODIUM 50 MCG TAB PO SCH (06:28)
[2016-06-27] MEDS: MORPHINE SULFATE 8 MG/ML INJ IV PUSH PRN ×2 (06:29→15:10)
[2016-06-27] MEDS: RESP: TOBRAMYCIN SULFATE 300 MG/5 ML NEB NEB SCH ×2 (07:37→20:00)
[2016-06-27] MEDS: CHLORHEXIDINE 0.12% (ORAL KIT) 15 ML CUP MT SCH ×2 (08:00→21:43)
[2016-06-27] MEDS: DOCUSATE SODIUM 100 MG CAP PO SCH ×2 (08:16→21:44)
[2016-06-27] MEDS: BACITRACIN TOP OINT 15 GM TUBE TOP SCH ×2 (08:16→21:00)
[2016-06-27] MEDS: amLODIPine BESYLATE 5 MG TAB PO SCH ×2 (08:16→21:44)
[2016-06-27] MEDS: METOPROLOL TARTRATE 25 MG TAB PO SCH ×2 (08:16→21:45)
[2016-06-27] MEDS: LACTULOSE SYRUP 20 GM/30 ML CUP PO SCH ×2 (08:16→21:43)
[2016-06-27] MEDS: SODIUM CHLORIDE 0.9% FLUSH 5 ML FLUSH IV FLUSH SCH ×2 (08:16→21:00)
[2016-06-27] MEDS: FAMOTIDINE 20 MG TAB PO SCH ×2 (08:16→21:45)
[2016-06-27] MEDS: hydrALAZINE HCL 20 MG/ML VIAL IV PUSH PRN (08:20)
[2016-06-27] MEDS: LEVOFLOXACIN 750 MG PREMIX INJ 150 ML IV SCH (08:35)
[2016-06-27] MEDS: ACETAMINOPHEN 1000 MG/100 ML VIAL IV PRN (08:35)
[2016-06-27] MEDS: LABETALOL HCL 100 MG/20 ML VIAL IV PUSH PRN (08:49)
[2016-06-27] MEDS ORDERED: HYOSCYAMINE SOLN 0.125 MG/ML 15 ML BTL PO PRN (10:00)
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
[2016-06-27 11:18] LABS: SCAN/DIFF AUTO DIFF CONFIRMED
[2016-06-27] MEDS: ENOXAPARIN SODIUM 40 MG/0.4 ML SYRINGE SQ SCH (11:25)
[2016-06-27] MEDS: DEXMEDETOMIDINE INJ 50 ML IV SCH ×2 (11:30→21:44)
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
[2016-06-27 12:36] LABS: BLOOD, URINE NEG (NEG); COMMENT (UR) CATH-CULT NOT IND; CULTURE IF INDICATED CATH CULTURE NOT IND; GLUCOSE,URINE NEG (NEG); KETONE, URINE NEG (NEG); MUCUS URINE FEW /lpf (OCC); NITRITE,URINE NEG (NEG); URINE COLOR YELLOW (YELLW/STRAW)
[2016-06-27] MEDS: ACETAMINOPHEN 325 MG TAB PO PRN ×2 (15:29→22:18)
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
[2016-06-27] MEDS: MAGNESIUM HYDROXIDE SUSP 30 ML CUP PO SCH (21:44)
[2016-06-28] VITALS (15 sets, daily range): BP systolic 135–178; BP diastolic 61–93; PULSE 74–126; RESP 16–21; TEMP 100.1–101.8; O2SAT 95–98
[2016-06-28] MEDS: RESP: ALBUTEROL 2.5 MG/IPRATROPIUM 0.5 MG NEB (SCH) NEB ×4 (03:20→19:40)
[2016-06-28 03:51] LABS: AUTOMATED NEUTROPHIL # 17.5 TH/MM3 (1.8-7.7); BASOPHIL # 0.1 TH/MM3 (0-0.2); BASOPHIL % 0.5 % (0.0-2.0); EOSINOPHIL # 0.4 TH/MM3 (0-0.4); EOSINOPHIL % 2.2 % (0.0-4.0); HEMATOCRIT 35.4 % (39.0-51.0); HEMO FLAGS DIFF FINAL; LYMPH % 4.5 % (9.0-44.0); LYMPHOCYTE # 0.9 TH/MM3 (1.0-4.8); MEAN CELL VOLUME 93.2 FL (80.0-100.0); MEAN CORPUSCULAR HEMOGLOBIN 30.2 PG (27.0-34.0); MEAN CORPUSCULAR HGB CONC 32.4 % (32.0-36.0); NEUT % 87.8 % (16.0-70.0); PLATELET COUNT 338 TH/MM3 (150-450); RED BLOOD COUNT 3.79 MIL/MM3 (4.50-5.90); RED CELL DISTRIBUTION WIDTH 14.3 % (11.6-17.2); WHITE BLOOD COUNT 19.9 TH/MM3 (4.0-11.0)
[2016-06-28 03:56] LABS: ANION GAP 7 MEQ/L (5-15); AST (GOT) 83 U/L (15-37); BICARBONATE 24.8 MEQ/L (21.0-32.0); BLOOD UREA NITROGEN 21 MG/DL (7-18); CHLORIDE 114 MEQ/L (98-107); MAGNESIUM 2.7 MG/DL (1.5-2.5); POTASSIUM 4.6 MEQ/L (3.5-5.1); SODIUM (NA) 146 MEQ/L (136-145)
[2016-06-28 03:59] LABS: ALKALINE PHOSPHATASE 182 U/L (45-117); ALT (GPT) 188 U/L (12-78); GLOMERULAR FILTRATION RATE 64 ML/MIN (>89); TOTAL BILIRUBIN ADULT 1.3 MG/DL (0.2-1.0)
[2016-06-28] MEDS: CHLORHEXIDINE GLUCONATE 2 % 1 PACK (2 CLOTHS) TOP SCH (04:00)
[2016-06-28] MEDS: METOCLOPRAMIDE HCL 10 MG/2 ML VIAL IV PUSH SCH ×3 (05:00→22:10)
[2016-06-28] MEDS: ARTIFICIAL TEARS OPTH SOLN 15 ML BTL EACH EYE SCH ×3 (05:00→20:26)
[2016-06-28] MEDS: LEVOTHYROXINE SODIUM 50 MCG TAB PO SCH (05:00)
[2016-06-28] MEDS: ACETAMINOPHEN 1000 MG/100 ML VIAL IV PRN ×2 (05:00→14:26)
[2016-06-28] MEDS: DEXMEDETOMIDINE INJ 50 ML IV SCH (05:10)
--- NOTE | 2016-06-28 05:55 | RADRPT ---
EXAM DATE/TIME: 06/28/2016 04:28 [facility] COMPARISON: CHEST SINGLE AP, June 26, 2016, 4:20. INDICATIONS : Shortness of breath, possible pulmonary disease. MEDICAL HISTORY : Hypertension. SURGICAL HISTORY : None. ENCOUNTER: Subsequent ACUITY: 1 week PAIN SCORE: Non-responsive. LOCATION: Bilateral chest FINDINGS: A single view of the chest demonstrates slightly worsening bibasilar densities. Endotracheal tube and nasogastric tube are unchanged. Heart normal in size. Osseous structures are intact. CONCLUSION: Slight worsening bibasilar densities. Cam Morley MD on June 28, 2016 at 5:53 Board Certified Radiologist. This report was verified electronically.
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
[2016-06-28] MEDS: RESP: TOBRAMYCIN SULFATE 300 MG/5 ML NEB NEB SCH ×2 (08:00→19:41)
[2016-06-28] MEDS: LACTULOSE SYRUP 20 GM/30 ML CUP PO SCH ×3 (09:00→20:25)
[2016-06-28] MEDS: SODIUM CHLORIDE 0.9% FLUSH 5 ML FLUSH IV FLUSH SCH ×2 (09:00→20:17)
[2016-06-28] MEDS: LEVOFLOXACIN 750 MG PREMIX INJ 150 ML IV SCH (09:20)
[2016-06-28] MEDS: DOCUSATE SODIUM 100 MG CAP PO SCH ×2 (09:20→20:26)
[2016-06-28] MEDS: amLODIPine BESYLATE 5 MG TAB PO SCH ×2 (09:21→20:26)
[2016-06-28] MEDS: METOPROLOL TARTRATE 25 MG TAB PO SCH ×2 (09:21→20:26)
[2016-06-28] MEDS: FAMOTIDINE 20 MG TAB PO SCH ×2 (09:21→20:25)
[2016-06-28] MEDS: CHLORHEXIDINE 0.12% (ORAL KIT) 15 ML CUP MT SCH ×2 (09:23→20:16)
[2016-06-28] MEDS: BACITRACIN TOP OINT 15 GM TUBE TOP SCH ×2 (09:23→20:27)
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
[2016-06-28] MEDS: ENOXAPARIN SODIUM 40 MG/0.4 ML SYRINGE SQ SCH (11:00)
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
[2016-06-28] MEDS: MORPHINE SULFATE 8 MG/ML INJ IV PUSH PRN (13:12)
[2016-06-28] MEDS ORDERED: PROPOFOL 500 MG/50 ML IV SCH (19:30)
[2016-06-28] MEDS ORDERED: ROCURONIUM INJ 50 MG/5 ML VIAL SCH (19:30)
[2016-06-28] MEDS: MAGNESIUM HYDROXIDE SUSP 30 ML CUP PO SCH (20:25)
[2016-06-29] VITALS (20 sets, daily range): BP systolic 138–173; BP diastolic 69–81; PULSE 94–132; RESP 16–25; TEMP 100.4–101.3; O2SAT 93–100
[2016-06-29] MEDS: ACETAMINOPHEN 1000 MG/100 ML VIAL IV PRN ×3 (00:55→23:54)
[2016-06-29] MEDS: RESP: ALBUTEROL 2.5 MG/IPRATROPIUM 0.5 MG NEB (SCH) NEB ×4 (03:26→19:58)
[2016-06-29] MEDS: CHLORHEXIDINE GLUCONATE 2 % 1 PACK (2 CLOTHS) TOP SCH (04:00)
[2016-06-29 04:08] LABS: AUTOMATED NEUTROPHIL # 14.2 TH/MM3 (1.8-7.7); BASOPHIL # 0.1 TH/MM3 (0-0.2); BASOPHIL % 0.5 % (0.0-2.0); EOSINOPHIL # 0.5 TH/MM3 (0-0.4); HEMATOCRIT 35.9 % (39.0-51.0); HEMO FLAGS DIFF FINAL; LYMPH % 5.3 % (9.0-44.0); LYMPHOCYTE # 0.9 TH/MM3 (1.0-4.8); MEAN CELL VOLUME 92.7 FL (80.0-100.0); MEAN CORPUSCULAR HEMOGLOBIN 30.9 PG (27.0-34.0); MEAN CORPUSCULAR HGB CONC 33.3 % (32.0-36.0); MONO % 5.7 % (0.0-8.0); NEUT % 85.5 % (16.0-70.0); PLATELET COUNT 405 TH/MM3 (150-450); RED BLOOD COUNT 3.87 MIL/MM3 (4.50-5.90); RED CELL DISTRIBUTION WIDTH 14.4 % (11.6-17.2); WHITE BLOOD COUNT 16.7 TH/MM3 (4.0-11.0)
[2016-06-29 04:20] LABS: ANION GAP 8 MEQ/L (5-15); AST (GOT) 59 U/L (15-37); BICARBONATE 24.1 MEQ/L (21.0-32.0); BLOOD UREA NITROGEN 23 MG/DL (7-18); CHLORIDE 114 MEQ/L (98-107); GLOMERULAR FILTRATION RATE 64 ML/MIN (>89); MAGNESIUM 2.7 MG/DL (1.5-2.5); POTASSIUM 4.6 MEQ/L (3.5-5.1); SODIUM (NA) 146 MEQ/L (136-145)
[2016-06-29 04:23] LABS: ALKALINE PHOSPHATASE 178 U/L (45-117); ALT (GPT) 144 U/L (12-78); TOTAL BILIRUBIN ADULT 1.1 MG/DL (0.2-1.0)
[2016-06-29] MEDS: LEVOTHYROXINE SODIUM 50 MCG TAB PO SCH (04:40)
[2016-06-29 05:10] LABS: BLOOD GAS BASE EXCESS -0.7 mmol/L (-2-2); BLOOD GAS CARBOXYHEMOGLOBIN 1.3 % (0-4); BLOOD GAS HCO3 23 mmol/L (22-26); BLOOD GAS METHEMOGLOBIN 0.9 % (0-2); BLOOD GAS O2 HGB SATURATION 94 % (90-100); BLOOD GAS OXYGEN CONTENT 17.3 Vol % (12.0-20.0); BLOOD GAS PCO2 31 mmHg (38-42); BLOOD GAS PO2 79 mmHg (61-120); BLOOD GAS TOTAL HGB 13.1 G/DL (12.0-16.0); CRITICAL VALUE NO; OXYGEN DEVICE VENTILATOR; TEMP CORR TO 98.6
[2016-06-29 05:11] LABS: DRAW SITE RT RADIAL; FIO2 30 %; NUMBER OF ARTERIAL PUNCTURES 1; STAT NO; ULNAR PULSE PRESENT; VENT SETTINGS PRVC/AC
[2016-06-29] MEDS: ARTIFICIAL TEARS OPTH SOLN 15 ML BTL EACH EYE SCH ×3 (06:17→21:34)
--- NOTE | 2016-06-29 06:21 | RADRPT ---
EXAM DATE/TIME: 06/29/2016 04:20 [place] COMPARISON: CHEST SINGLE AP, June 28, 2016, 4:28. INDICATIONS : Shortness of breath. MEDICAL HISTORY : Hypertension. SURGICAL HISTORY : None. ENCOUNTER: Subsequent ACUITY: 1 week PAIN SCORE: Non-responsive. LOCATION: Bilateral chest FINDINGS: A single view of the chest demonstrates endotracheal tube in satisfactory position. NG coiled in stom ach. Bilateral mostly basilar airspace disease similar to June 28. No significant effusion. No pneum othorax. CONCLUSION: 1. Endotracheal tube tip in satisfactory position. NG coiled in stomach. Basilar airspace disease sim ilar to June 28. Luis Enrique Rock MD on June 29, 2016 at 6:18 Board Certified Radiologist. This report was verified electronically.
[2016-06-29] MEDS: METOCLOPRAMIDE HCL 10 MG/2 ML VIAL IV PUSH SCH ×3 (06:41→21:33)
[2016-06-29] MEDS: LACTULOSE SYRUP 20 GM/30 ML CUP PO SCH ×2 (09:00→21:00)
[2016-06-29] MEDS: SODIUM CHLORIDE 0.9% FLUSH 5 ML FLUSH IV FLUSH SCH ×2 (09:00→21:00)
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
[2016-06-29] MEDS: LEVOFLOXACIN 750 MG PREMIX INJ 150 ML IV SCH (09:19)
[2016-06-29] MEDS: DOCUSATE SODIUM 100 MG CAP PO SCH ×2 (09:20→21:00)
[2016-06-29] MEDS: METOPROLOL TARTRATE 25 MG TAB PO SCH ×2 (09:20→21:32)
[2016-06-29] MEDS: amLODIPine BESYLATE 5 MG TAB PO SCH ×2 (09:20→21:32)
[2016-06-29] MEDS: FAMOTIDINE 20 MG TAB PO SCH ×2 (09:20→21:32)
[2016-06-29] MEDS: CHLORHEXIDINE 0.12% (ORAL KIT) 15 ML CUP MT SCH ×2 (09:21→20:00)
[2016-06-29] MEDS: BACITRACIN TOP OINT 15 GM TUBE TOP SCH ×2 (09:22→21:00)
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
[2016-06-29] MEDS: ENOXAPARIN SODIUM 40 MG/0.4 ML SYRINGE SQ SCH (11:00)
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
[2016-06-29] MEDS: RESP: TOBRAMYCIN SULFATE 300 MG/5 ML NEB NEB SCH ×2 (12:23→19:58)
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
--- NOTE | 2016-06-29 16:47 | RADRPT ---
EXAM DATE/TIME: 06/29/2016 14:28 [facility] COMPARISON: CHEST SINGLE AP, June 29, 2016, 4:20. INDICATIONS : Nasogastric tube placement verification. MEDICAL HISTORY : None. SURGICAL HISTORY : None. ENCOUNTER: Initial ACUITY: 1 week PAIN SCORE: Non-responsive. LOCATION: Bilateral chest FINDINGS: 2 AP views of the abdomen. Nasogastric tube is in place with the tip in the distal stomach. Moderate air filled distention of multiple loops of small bowel. Gas scattered in the colon. CONCLUSION: Nasogastric tube tip in the stomach. Jose Navarro MD on June 29, 2016 at 16:44 Board Certified Radiologist. This report was verified electronically.
--- NOTE | 2016-06-29 16:59 | PD.PROCEDR ---
Procedure Note Procedure Procedure fiberoptic bronchoscopy for bronchoscopy guided percutaneous tracheostomy Operators: Dr. Andrea Ortiz for fiberoptic bronchoscopy/ Dr. Reyes for percutaneous tracheostomy Informed consent obtained from family and documented in chart Anesthesia used Propofol 100mg IV, fentanyl 200 g IV, Rocuronium 50 mg IV for neuromuscular blockade: Procedure: Patient was placed on 100% oxygen via ET tube/mechanical ventilator. After ensuring adequate sedation/analgesia/ neuromuscular blockade, fiberoptic bronchoscope was inserted via adapter on ET tube and advanced into the trachea upto the sajan. Following this bronchoscope was withdrawn back to the tip of ET tube. After deflating cuff of ET tube it was withdrawn back to the 19 cm rufus. Subsequent steps of percutaneous tracheostomy were directly visualized on videomonitor via bronchoscopy including insertion of introducer catheter followed by guidewire and then insertion of tracheal dilator followed by insertion of tracheostomy tube following which bronchoscope was withdrawn out of the ET tube and was inserted down the percutaneous tracheostomy and correct placement was confirmed by visualizing tracheal rings following which bronchoscope was withdrawn. Inner cannula was placed by Dr. Reyes and after inflating cuff, patient was connected to mechanical ventilation via tracheostomy tube. Bronchoscope was reinserted via ET tube and minimal amount of secretions were suctioned out from above cuff of tracheostomy tube following which bronchoscope and ET tube were withdrawn out. Patient tolerated the procedure well with no immediate complications noted. Post procedure CXR ordered and was pending. Will f/u when available. Andrea Ortiz MD Jun 29, 2016 16:59
[2016-06-29] MEDS: MAGNESIUM HYDROXIDE SUSP 30 ML CUP PO SCH (21:00)
[2016-06-29] MEDS: LABETALOL HCL 100 MG/20 ML VIAL IV PUSH PRN (21:59)
[2016-06-30] VITALS (20 sets, daily range): BP systolic 115–160; BP diastolic 68–91; PULSE 80–122; RESP 12–28; TEMP 99.5–102.9; O2SAT 93–100
[2016-06-30] MEDS: RESP: ALBUTEROL 2.5 MG/IPRATROPIUM 0.5 MG NEB (SCH) NEB ×2 (03:18→08:51)
[2016-06-30] MEDS: CHLORHEXIDINE GLUCONATE 2 % 1 PACK (2 CLOTHS) TOP SCH (04:00)
[2016-06-30 04:35] LABS: AUTOMATED NEUTROPHIL # 16.7 TH/MM3 (1.8-7.7); BASOPHIL # 0.2 TH/MM3 (0-0.2); BASOPHIL % 0.8 % (0.0-2.0); EOSINOPHIL # 0.4 TH/MM3 (0-0.4); EOSINOPHIL % 1.9 % (0.0-4.0); HEMO FLAGS DIFF FINAL; LYMPH % 7.2 % (9.0-44.0); LYMPHOCYTE # 1.4 TH/MM3 (1.0-4.8); MEAN CELL VOLUME 91.7 FL (80.0-100.0); MEAN CORPUSCULAR HEMOGLOBIN 30.4 PG (27.0-34.0); MEAN CORPUSCULAR HGB CONC 33.1 % (32.0-36.0); MONO % 5.7 % (0.0-8.0); NEUT % 84.4 % (16.0-70.0); PLATELET COUNT 552 TH/MM3 (150-450); RED BLOOD COUNT 4.26 MIL/MM3 (4.50-5.90); RED CELL DISTRIBUTION WIDTH 14.5 % (11.6-17.2); WHITE BLOOD COUNT 19.8 TH/MM3 (4.0-11.0)
[2016-06-30 04:52] LABS: ALKALINE PHOSPHATASE 198 U/L (45-117); ALT (GPT) 157 U/L (12-78); ANION GAP 11 MEQ/L (5-15); AST (GOT) 104 U/L (15-37); BICARBONATE 24.5 MEQ/L (21.0-32.0); BLOOD UREA NITROGEN 30 MG/DL (7-18); CHLORIDE 108 MEQ/L (98-107); GLOMERULAR FILTRATION RATE 50 ML/MIN (>89); POTASSIUM 4.9 MEQ/L (3.5-5.1); SODIUM (NA) 143 MEQ/L (136-145); TOTAL BILIRUBIN ADULT 1.1 MG/DL (0.2-1.0)
[2016-06-30] MEDS: ARTIFICIAL TEARS OPTH SOLN 15 ML BTL EACH EYE SCH ×3 (06:00→20:55)
[2016-06-30] MEDS: METOCLOPRAMIDE HCL 10 MG/2 ML VIAL IV PUSH SCH ×3 (06:06→20:56)
[2016-06-30] MEDS: ACETAMINOPHEN 1000 MG/100 ML VIAL IV PRN ×2 (06:06→18:08)
[2016-06-30] MEDS: LEVOTHYROXINE SODIUM 50 MCG TAB PO SCH (06:06)
[2016-06-30] MEDS: RESP: TOBRAMYCIN SULFATE 300 MG/5 ML NEB NEB SCH ×2 (07:36→19:58)
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
[2016-06-30] MEDS: CHLORHEXIDINE 0.12% (ORAL KIT) 15 ML CUP MT SCH ×2 (08:00→20:53)
[2016-06-30] MEDS: BACITRACIN TOP OINT 15 GM TUBE TOP SCH ×2 (09:00→20:55)
[2016-06-30] MEDS: SODIUM CHLORIDE 0.9% FLUSH 5 ML FLUSH IV FLUSH SCH ×2 (09:00→20:53)
[2016-06-30] MEDS: LEVOFLOXACIN 750 MG PREMIX INJ 150 ML IV SCH (09:17)
[2016-06-30] MEDS: METOPROLOL TARTRATE 25 MG TAB PO SCH ×2 (09:17→20:54)
[2016-06-30] MEDS: DOCUSATE SODIUM 100 MG CAP PO SCH ×2 (09:17→20:53)
[2016-06-30] MEDS: LACTULOSE SYRUP 20 GM/30 ML CUP PO SCH ×2 (09:17→21:00)
[2016-06-30] MEDS: amLODIPine BESYLATE 5 MG TAB PO SCH ×2 (09:18→20:54)
[2016-06-30] MEDS: FAMOTIDINE 20 MG TAB PO SCH ×2 (09:18→20:54)
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
[2016-06-30] MEDS: ENOXAPARIN SODIUM 40 MG/0.4 ML SYRINGE SQ SCH (11:23)
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
--- NOTE | 2016-06-30 13:42 | RADRPT ---
EXAM DATE/TIME: 06/30/2016 09:26 [facility] COMPARISON: CT ABDOMEN & PELVIS W CONTRAST, June 23, 2016, 20:17. INDICATIONS : Elevated labs. MEDICAL HISTORY : Trauma alert. Traumatic brain injury. SURGICAL HISTORY : Cholecystectomy. Back surgery. Cataract. ENCOUNTER: Initial ACUITY: 1 week PAIN SCORE: Nonresponsive. LOCATION: Bilateral upper quadrant MEASUREMENTS: LIVER: 16.5 cm length COMMON DUCT: 3 mm RIGHT KIDNEY: 10.3 x 6.0 x 6.6 cm SPLEEN: 11.8 cm length FINDINGS: LIVER: Bowel gas obscures portions of the left lobe. Normal echotexture without focal lesion or ductal dilat ation. COMMON DUCT: No intraluminal mass or stone visualized. GALLBLADDER: Surgically absent. PANCREAS: Totally obscured by bowel gas. RIGHT KIDNEY: No hydronephrosis, stone or mass. A 1 cm focus of increased echogenicity is seen involving the upper pole no correlate on the recent CT. This is felt to relate to a focal area of fat. No underlying lesi on. SPLEEN: No focal lesion. CONCLUSION: 1. Bowel gas limits the exam somewhat. 2. No acute abnormality. 3. Prior cholecystectomy. Josias Pandya Jr., MD on June 30, 2016 at 13:37 Board Certified Radiologist. This report was verified electronically.
[2016-06-30] MEDS: AZTREONAM INJ 2,000 MG in SODIUM CHLORIDE 0.9% INJ 100 ML IV SCH (14:45)
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
[2016-06-30] MEDS: MAGNESIUM HYDROXIDE SUSP 30 ML CUP PO SCH (21:00)
[2016-07-01] VITALS (10 sets, daily range): BP systolic 119–135; BP diastolic 73–83; PULSE 94–112; RESP 19–28; TEMP 98.2–100.5; O2SAT 92–100
[2016-07-01] MEDS: AZTREONAM INJ 2,000 MG in SODIUM CHLORIDE 0.9% INJ 100 ML IV SCH ×2 (01:12→13:00)
[2016-07-01] MEDS: CHLORHEXIDINE GLUCONATE 2 % 1 PACK (2 CLOTHS) TOP SCH (04:00)
[2016-07-01 04:23] LABS: AUTOMATED NEUTROPHIL # 15.4 TH/MM3 (1.8-7.7); BASOPHIL # 0.1 TH/MM3 (0-0.2); BASOPHIL % 0.8 % (0.0-2.0); EOSINOPHIL # 0.7 TH/MM3 (0-0.4); EOSINOPHIL % 3.7 % (0.0-4.0); HEMATOCRIT 39.1 % (39.0-51.0); HEMO FLAGS DIFF FINAL; LYMPH % 7.7 % (9.0-44.0); LYMPHOCYTE # 1.4 TH/MM3 (1.0-4.8); MEAN CELL VOLUME 92.3 FL (80.0-100.0); MEAN CORPUSCULAR HEMOGLOBIN 29.9 PG (27.0-34.0); MEAN CORPUSCULAR HGB CONC 32.4 % (32.0-36.0); MONO % 6.2 % (0.0-8.0); NEUT % 81.6 % (16.0-70.0); PLATELET COUNT 549 TH/MM3 (150-450); RED BLOOD COUNT 4.23 MIL/MM3 (4.50-5.90); RED CELL DISTRIBUTION WIDTH 14.3 % (11.6-17.2); WHITE BLOOD COUNT 18.8 TH/MM3 (4.0-11.0)
[2016-07-01 04:54] LABS: ALKALINE PHOSPHATASE 174 U/L (45-117); ALT (GPT) 252 U/L (12-78); ANION GAP 9 MEQ/L (5-15); AST (GOT) 236 U/L (15-37); BICARBONATE 23.5 MEQ/L (21.0-32.0); BLOOD UREA NITROGEN 38 MG/DL (7-18); CHLORIDE 113 MEQ/L (98-107); GLOMERULAR FILTRATION RATE 65 ML/MIN (>89); POTASSIUM 4.3 MEQ/L (3.5-5.1); SODIUM (NA) 145 MEQ/L (136-145); TOTAL BILIRUBIN ADULT 0.8 MG/DL (0.2-1.0)
[2016-07-01] MEDS: ARTIFICIAL TEARS OPTH SOLN 15 ML BTL EACH EYE SCH ×2 (06:03→12:51)
[2016-07-01] MEDS: LEVOTHYROXINE SODIUM 50 MCG TAB PO SCH (06:03)
[2016-07-01] MEDS: METOCLOPRAMIDE HCL 10 MG/2 ML VIAL IV PUSH SCH (06:03)
[2016-07-01] MEDS: SODIUM CHLORIDE 0.9% FLUSH 5 ML FLUSH IV FLUSH SCH (07:28)
--- NOTE | 2016-07-01 07:31 | MP ---
cc: NIXON URIBE MD DATE OF SURGERY 06/29/2016 PREOPERATIVE DIAGNOSES Respiratory failure. Traumatic brain injury. POSTOPERATIVE DIAGNOSES Respiratory failure. Traumatic brain injury. OPERATIVE PROCEDURE Blue Rhino tracheostomy and bronchoscopy. SURGEON MD Júnior HORSE [employer] TIMER Dr. Ortiz ANESTHESIA Propofol and fentanyl and rocuronium. ESTIMATED BLOOD LOSS Minimal. PROCEDURE The patient was prepped and draped in the usual fashion, the area infiltrated with 1% Xylocaine. A transverse neck incision made half-way between the sternal notch and cricoid cartilage, deepened down bluntly. The strap muscles are retracted laterally with hemostat and trachea reached. A needle is inserted between the second and third tracheal ring and then through the needle the guidewire was inserted, all this following with bronchoscopy direct vision. Over the guidewire the punch dilator was placed and then the large Blue Rhino dilator. An 8 Shiley tracheostomy tube follows which is then connected to ventilator, end-tidal CO2 checked. The Shiley cannula is sutured to skin with 2-0 Prolene and end-tidal CO2 of course checked. The patient is then bronchoscoped through the cannula and a large amount of thick secretions is obtained. The patient tolerated the procedure well Nixon MORAN/ABDOULAYE /2:01 PM /7:21 AM
[2016-07-01] MEDS: CHLORHEXIDINE 0.12% (ORAL KIT) 15 ML CUP MT SCH (08:26)
[2016-07-01] MEDS: BACITRACIN TOP OINT 15 GM TUBE TOP SCH (08:27)
[2016-07-01] MEDS: DOCUSATE SODIUM 100 MG CAP PO SCH (08:27)
[2016-07-01] MEDS: amLODIPine BESYLATE 5 MG TAB PO SCH (08:27)
[2016-07-01] MEDS: METOPROLOL TARTRATE 25 MG TAB PO SCH (08:27)
[2016-07-01] MEDS: LACTULOSE SYRUP 20 GM/30 ML CUP PO SCH (08:27)
[2016-07-01] MEDS: FAMOTIDINE 20 MG TAB PO SCH (08:27)
[2016-07-01] MEDS: LEVOFLOXACIN 750 MG PREMIX INJ 150 ML IV SCH (08:27)
[2016-07-01] MEDS: RESP: TOBRAMYCIN SULFATE 300 MG/5 ML NEB NEB SCH (09:05)
[2016-07-01] MEDS: ENOXAPARIN SODIUM 40 MG/0.4 ML SYRINGE SQ SCH (09:52)
[2016-07-01] MEDS: ACETAMINOPHEN 325 MG TAB PO PRN (09:52)
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
[2016-07-01] MEDS ORDERED: VALPROIC ACID SYRUP 250 MG/5 ML UDC PO SCH (11:00)
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
[2016-07-01] MEDS ORDERED: oxyCODONE HCL ORAL CONC 20 MG/ML SYRINGE PO PRN (14:00)
[2016-07-01] MEDS ORDERED: OXYC1CON3 PO (14:41)
[2016-07-01] MEDS ORDERED: VALP250S2 PO (14:41)
[2016-07-01] MEDS ORDERED: METO25TA3 PO (14:41)
[2016-07-01] MEDS ORDERED: BACI500O2 TOP (14:41)
[2016-07-01] MEDS ORDERED: DOCU1CAP39 PO (14:41)
[2016-07-01] MEDS ORDERED: Artificial Tears Opth Soln EACH EYE (14:41)
[2016-07-01] MEDS ORDERED: LACT10SO PO (14:41)
[2016-07-01] MEDS ORDERED: AMLO5 PO (14:41)
[2016-07-01] MEDS ORDERED: ENOX40P SQ (14:41)
[2016-07-01] MEDS ORDERED: LEVA750T PO (14:43)
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
[2016-08-02] MEDS ORDERED: WHEEMIS3 (12:51)
[2016-08-02] MEDS ORDERED: GETGO ROLLING W1 MI1 (12:51)
[2016-08-03] MEDS ORDERED: AMLO5 PO (11:03)
[2016-08-03] MEDS ORDERED: LIPI10TA PO (11:03)
[2016-08-03] MEDS ORDERED: METO25TA3 PO (11:03)
[2016-08-03] MEDS ORDERED: LEVO.05 PO (11:03)
[2016-08-03] MEDS ORDERED: Artificial Tears Opth Soln EACH EYE (11:03)
[2016-08-03] MEDS ORDERED: MULT1TAB84 PO (11:03)
[2016-08-03] MEDS ORDERED: TAMS5CAP PO (12:24)
== END 2016-07-01 15:05 | DRG 4 ==
LOC: NEPI 11:11 → NEDA 11:56 → EDBD 11:56 → N03A 12:01
PROVIDERS: ADMIT Surgery Trauma Surgery; ATTEND Surgery Trauma Surgery
PROC: 03HY32Z Insertion of Monitoring Device into Upper Artery, Percutaneous Approach (ICD-10-PCS; 2016-06-17)
PROC: 0BH17EZ Insertion of Endotracheal Airway into Trachea, Via Natural or Artificial Opening (ICD-10-PCS; 2016-06-17)
PROC: 4A133B1 Monitoring of Arterial Pressure, Peripheral, Percutaneous Approach (ICD-10-PCS; 2016-06-17)
PROC: 4A133J1 Monitoring of Arterial Pulse, Peripheral, Percutaneous Approach (ICD-10-PCS; 2016-06-17)
PROC: 05H633Z Insertion of Infusion Device into Left Subclavian Vein, Percutaneous Approach (ICD-10-PCS; 2016-06-17)
PROC: 5A1945Z Respiratory Ventilation, 24-96 Consecutive Hours (ICD-10-PCS; 2016-06-17)
PROC: 0T9B70Z Drainage of Bladder with Drainage Device, Via Natural or Artificial Opening (ICD-10-PCS; 2016-06-18)
PROC: 5A1955Z Respiratory Ventilation, Greater than 96 Consecutive Hours (ICD-10-PCS; 2016-06-21)
PROC: 0BJ08ZZ Inspection of Tracheobronchial Tree, Via Natural or Artificial Opening Endoscopic (ICD-10-PCS; 2016-06-24)
PROC: 0B113F4 Bypass Trachea to Cutaneous with Tracheostomy Device, Percutaneous Approach (ICD-10-PCS; principal; 2016-06-29)
PROC: 0BJ08ZZ Inspection of Tracheobronchial Tree, Via Natural or Artificial Opening Endoscopic (ICD-10-PCS; 2016-06-29)
DX: S06.6X9A Traumatic subarachnoid hemorrhage with loss of consciousness of unspecified duration, initial encounter (principal); J69.0 Pneumonitis due to inhalation of food and vomit; J15.1 Pneumonia due to Pseudomonas; E87.0 Hyperosmolality and hypernatremia; S22.051A Stable burst fracture of T5-T6 vertebra, initial encounter for closed fracture; S32.019A Unspecified fracture of first lumbar vertebra, initial encounter for closed fracture; J96.01 Acute respiratory failure with hypoxia; S00.01XA Abrasion of scalp, initial encounter; S04.012A Injury of optic nerve, left eye, initial encounter; G81.94 Hemiplegia, unspecified affecting left nondominant side; Z99.11 Dependence on respirator [ventilator] status; J98.11 Atelectasis; S32.029A Unspecified fracture of second lumbar vertebra, initial encounter for closed fracture; G93.89 Other specified disorders of brain; S02.40DA Maxillary fracture, left side, initial encounter for closed fracture; S02.82XA Fracture of other specified skull and facial bones, left side, initial encounter for closed fracture; S01.81XA Laceration without foreign body of other part of head, initial encounter; H57.04 Mydriasis; V22.4XXA Motorcycle driver injured in collision with two- or three-wheeled motor vehicle in traffic accident, initial encounter; Y92.488 Other paved roadways as the place of occurrence of the external cause; Y93.89 Activity, other specified; Y99.9 Unspecified external cause status; S50.811A Abrasion of right forearm, initial encounter; G58.8 Other specified mononeuropathies; E03.9 Hypothyroidism, unspecified; E78.5 Hyperlipidemia, unspecified; I10 Essential (primary) hypertension; K21.9 Gastro-esophageal reflux disease without esophagitis; K57.30 Diverticulosis of large intestine without perforation or abscess without bleeding; E83.39 Other disorders of phosphorus metabolism; S02.2XXA Fracture of nasal bones, initial encounter for closed fracture; S02.40FA Zygomatic fracture, left side, initial encounter for closed fracture; Z90.49 Acquired absence of other specified parts of digestive tract; R50.2 Drug induced fever; D64.9 Anemia, unspecified
CPT/HCPCS: 31500; 31600; 31624; 36556; 36600; 70450; 70486; 70553; 71010; 71260; 72125; 72128; 72131; 72170; 74177; 76705; 76937; 80048; 80053; 80074; 80202; 81001; 82140; 82247; 82248; 82435; 82550; 82565; 82805; 82947; 82948; 83690; 83735; 83930; 84100; 84132; 84295; 84520; 85007; 85025; 85027; 85610; 85730; 86850; 86900; 86901; 87015; 87040; 87070; 87077; 87086; 87186; 87205; 87449; 87641; 90471; 90714; 90715; 94002; 94003; 94640; 94664; 94770; 95819; 96374; 96375; 99291; A9579; C9113; C9399; G0390; J0131; J0171; J0330; J0360; J0461; J0690; J1580; J1650; J1953; J1956; J2250; J2270; J2543; J2765; J3010; J3370; J7030; J7040; J7050; J7682; L0150; L0172; L0200; L0484; Q9963; Q9967